=== PATIENT | female | born 1940 | race Caucasian/White ===

== ENCOUNTER 2019-04-22 13:17 | Inpatient (IN) ==
[2019-04-22 17:32] LABS: BASOPHILS # (AUTO) 0.1 X10^3/uL (0.0-0.1); BASOPHILS % (AUTO) 0.7 % (0.2-1.0); EOSINOPHILS # (AUTO) 0.1 x10^3/uL (0.0-0.2); EOSINOPHILS % (AUTO) 0.7 % (0.9-2.9); HEMATOCRIT 39.8 % (36.0-47.0); HEMOGLOBIN 13.3 g/dL (12.0-16.0); LYMPHOCYTES # (AUTO) 3.4 X10^3/uL (1.3-2.9); LYMPHOCYTES % (AUTO) 44.6 % (21.0-51.0); MEAN CORPUSCULAR HEMOGLOBIN 30.6 pg (27.0-34.0); MEAN CORPUSCULAR HGB CONC 33.5 g/dL (33.0-35.0); MEAN CORPUSCULAR VOLUME 91.4 fL (80.0-100.0); MEAN PLATELET VOLUME 8.1 fL (7.4-11.0); MONOCYTES # (AUTO) 0.5 x10^3/uL (0.3-0.8); MONOCYTES % (AUTO) 6.1 % (0.0-13.0); NEUTROPHILS # (AUTO) 3.7 x10^3/uL (2.2-4.8); NEUTROPHILS % (AUTO) 47.9 % (42.0-75.0); PLATELET COUNT 208 X10^3/uL (150.0-450.0); RED BLOOD COUNT 4.35 X10^6/uL (3.5-5.4); WHITE BLOOD COUNT 7.7 X10^3/uL (3.6-10.0)
[2019-04-22 17:33] VITALS: BMI 21.9
[2019-04-22 18:10] LABS: ALANINE AMINOTRANSFERASE 31 Units/L (12-78); ALKALINE PHOSPHATASE 67 Units/L (46-116); ASPARTATE AMINO TRANSFERASE 37 Units/L (15-37); BLOOD UREA NITROGEN 13 mg/dL (7-18); CALCIUM 9.2 mg/dL (8.5-10.1); CARBON DIOXIDE 29.5 mmol/L (21-32); CHLORIDE 102 mmol/L (98-107); CKMB % 0.6 % (<4); CREATINE KINASE 871 Units/L (26-192); CREATININE 0.91 mg/dL (0.55-1.02); SODIUM 140 mmol/L (136-145); TROPONIN I < 0.02 ng/mL (0-1.5); eGFR NON BLACK RACES > 60 (>60)
[2019-04-22 18:11] LABS: CREATINE KINASE MB 5.6 ng/mL (0-4.0)
--- NOTE | 2019-04-22 18:13 | RAD ---
CHEST, 1 VIEWHISTORY: LEFT SIDE CHEST PAIN, SOBStudy: AP view of the chest.Comparison:NoneFindings:The cardiomediastinal silhouette is normal. No focal consolidations, pleural effusions or pneumothorax. Osseous structures demonstrate no acute abnormality. Bilateral hyperexpansion and interstitial prominence.IMPRESSION:1. No acute cardiopulmonary process.2. Findings of COPD.Electronically signed by: BRYN COOPER (Apr 22, 2019 18:12:01)
--- NOTE | 2019-04-22 18:16 | CT ---
BRAIN W/O CONCLINICAL INDICATION: SYNCOPE, DIZZINESSTECHNIQUE: Images were obtained through the head per standard CT protocol. Multiplanar reformatted images were generated from the CT dataset. Dose reduction techniques including Automated Exposure Control (AEC) and adjustment of mA and kV were utlized.COMPARISON:None.FINDINGS:Diffuse patchy and confluent periventricular and subcortical hypoattenuation with associated volume loss . There is no evidence of acute infarction, intracranial hemorrhage, mass or mass effect, or abnormal extra-axial collection . The density of the larger dural venous sinuses is normal . Age-related, ex-vacuo dilatation of the ventricles and sulci . The skull base and calvarium are normal .The included paranasal sinuses and mastoid air cells are predominantly clear .IMPRESSION:1. No acute intracranial abnormality. 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
[2019-04-22] MEDS ORDERED: NS 250 ML IV 250 ML IV ONE (19:35)
[2019-04-22] MEDS: ROCEPHIN VIAL 1 GRAM 1 G in NS 100 ML IV + SPIKE MINIBAG* 100 ML IV SCH (19:39)
[2019-04-22 22:18] LABS: CREATINE KINASE 686 Units/L (26-192); TROPONIN I < 0.02 ng/mL (0-1.5)
[2019-04-22 22:38] LABS: CKMB % 0.5 % (<4); CREATINE KINASE MB 3.6 ng/mL (0-4.0)
[2019-04-23 01:22] LABS: CKMB % 0.6 % (<4); CREATINE KINASE 635 Units/L (26-192); CREATINE KINASE MB 3.5 ng/mL (0-4.0); TROPONIN I < 0.02 ng/mL (0-1.5)
[2019-04-23 05:56] LABS: BASOPHILS % (AUTO) 0.6 % (0.2-1.0); EOSINOPHILS # (AUTO) 0.1 x10^3/uL (0.0-0.2); EOSINOPHILS % (AUTO) 0.9 % (0.9-2.9); HEMOGLOBIN 12.4 g/dL (12.0-16.0); LYMPHOCYTES # (AUTO) 3.2 X10^3/uL (1.3-2.9); LYMPHOCYTES % (AUTO) 45.3 % (21.0-51.0); MEAN CORPUSCULAR HEMOGLOBIN 31.1 pg (27.0-34.0); MEAN CORPUSCULAR HGB CONC 33.4 g/dL (33.0-35.0); MEAN CORPUSCULAR VOLUME 93.2 fL (80.0-100.0); MEAN PLATELET VOLUME 8.4 fL (7.4-11.0); MONOCYTES # (AUTO) 0.5 x10^3/uL (0.3-0.8); MONOCYTES % (AUTO) 6.8 % (0.0-13.0); NEUTROPHILS # (AUTO) 3.3 x10^3/uL (2.2-4.8); NEUTROPHILS % (AUTO) 46.4 % (42.0-75.0); PLATELET COUNT 188 X10^3/uL (150.0-450.0); RED BLOOD COUNT 3.97 X10^6/uL (3.5-5.4); WHITE BLOOD COUNT 7.1 X10^3/uL (3.6-10.0)
[2019-04-23 06:17] LABS: ALANINE AMINOTRANSFERASE 27 Units/L (12-78); ALBUMIN 3.4 g/dL (3.4-5.0); ALKALINE PHOSPHATASE 60 Units/L (46-116); ASPARTATE AMINO TRANSFERASE 30 Units/L (15-37); BLOOD UREA NITROGEN 12 mg/dL (7-18); CALCIUM 8.6 mg/dL (8.5-10.1); CARBON DIOXIDE 32.2 mmol/L (21-32); CHLORIDE 105 mmol/L (98-107); CREATININE 0.89 mg/dL (0.55-1.02); SODIUM 143 mmol/L (136-145); TOTAL PROTEIN 7.1 g/dL (6.4-8.2); eGFR NON BLACK RACES > 60 (>60)
--- NOTE | 2019-04-23 07:45 | VAS ---
HISTORYchest pain, sob, dizziness, near syncopeSTUDYCAROTIDCOMPARISONNoneTECHNIQUEMultiple snow scale and color flow Doppler images of the ri ght and left carotid arterial system were obtained. The vertebral arterial system was evaluated as w ell.FINDINGSOn review the images of the right left carotid system no significant plaquing or stenoses are observed. Waveforms are normal. Peak systolic velocities are in the normal range maximal 81 cm/s econd in the distal right ICA. Antegrade flow is seen in the right vertebral artery.On the left intim al thickening is seen in the common carotid artery but no significant plaquing or stenoses are observ ed. Waveforms are normal. Peak systolic velocities are in the normal range maximal 142 cm/second in t he distal left ICA. Antegrade flow is seen in the left vertebral artery. Normal color flow Doppler is seen throughout the right and left carotid arterial system. No hemodynamically significant stenosis is seen based on velocity criteria. The right and left vertebral arteries demonstrate antegrade flow .IMPRESSIONNo hemodynamically significant stenosis are seen at by real-time scanning waveforms peak s ystolic velocities or systolic velocity ratios.Antegrade flow is seen in both vertebral arteries.Elec tronically signed by: ALIX FLYNN (Apr 23, 2019 07:43:46)
[2019-04-23] MEDS: ROCEPHIN VIAL 1 GRAM 1 G in NS 100 ML IV + SPIKE MINIBAG* 100 ML IV SCH (08:41)
--- NOTE | 2019-04-23 09:08 | DR.UPDATE ---
H&P Update History and Physical Update: History and Physical reviewed and patient examined. Changes noted: Yes with the following: PRESENTED TO THE OFFICE WITH COMPLAINTS OF SHORNESS OF BREATH, CHEST DISCOMFORT, SINUS CONGESTION, FATIGUE, AND MALAISE. SHE ALSO REPORTED SINUS PRESSURE WITH BLOODY DISCHARGE, DIZZINESS, AND NEAR SYNCOPE. SHE WAS ADMITTED TO THE HOSPITAL FOR FURTHER EVALUATION OF CHEST PAIN, SOB, AND SINUSITIS. ON ADMISSION, WE WILL OBTAIN LABS, SERIAL CARDIAC ENZYMES AND EKGS, BRAIN CT, CHEST XRAY, AND A CAROTID ARTERY US. WE WILL START ROCPEHIN 1G IV DAILY, SUPPLEMENTAL OXYGEN, AND WILL RESUME HER HOME MEDICATIONS. OTHERWISE, WE WILL FOLLOW UP WITH AM LABS AND CONTINUE TO MONITOR. Prescription drug monitoring program results: PDMP was not reviewed H&P Reviewed: Yes Patient was examined?: Yes
[2019-04-23] MEDS ORDERED: ANTIVERT TAB 25 MG PO PRN (10:19)
[2019-04-23] MEDS: LOPRESSOR TAB 25 MG PO SCH ×2 (11:03→20:25)
[2019-04-23] MEDS: ZESTRIL TAB 10 MG PO SCH ×2 (11:04→20:25)
[2019-04-23] MEDS: LANOXIN PO SCH (11:04)
[2019-04-23] MEDS: SYNTHROID 75 mcg TAB PO SCH (11:04)
[2019-04-23] MEDS: PriLOSEC PO SCH (11:05)
--- NOTE | 2019-04-23 20:58 | PCM.PROG ---
Progress Note - Progress Note for Day of Date of Exam: 04/23/19 - Subjective Subjective: WAS ADMITTED FOR CHEST PAIN, SHORTNESS OF BREATH, AND SINUSITIS. TODAY, SHE IS ALERT AND ORIENTED, LYING IN BED ON MORNING ROUNDS. SHE DENIES CHEST PAIN TODAY, BUT CONTINUES WITH COMPLAINTS OF SHORTNESS OF BREATH AND SINUS CONGESTION. SHE ALSO CONTINUES WITH FATIGUE. ON EXAMINATION, HEART IS REGULAR IN RATE AND RHYTHM. BILATERAL LUNGS ARE NOTED WITH DIMINISHED LUNG SOUNDS THROUGHOUT. ABDOMEN IS ROUND, SOFT, AND NON-TENDER WITH NORMAL BOWEL SOUNDS NOTED IN ALL QUADRANTS. HER VITALS THIS MORNING ARE: 98.0-58-18-100%-167/72. LABS WERE OBTAINED. ABNORMAL LAB VALUES INCLUDE THE FO LLOWING: INR 1.83, CARBON DIOXIDE 32.2, GLUCOSE 100. A CHEST XRAY WAS OBTAINED ON ADMISSION AND REVEALED: No acute cardiopulmonary process. Findings of COPD. A BRAIN CT WAS OBTAINED AND REVEALED: 1. No acute intracranial abnormality. 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 If there is definite, focal, acute neurologic deficit, MRI with diffusion-weighted imaging would be more sensitive for detection of acute stroke. AN EKG WAS OBTAINED AND REVEALED: SINUS RHYTHM WITH HR 65. A CAROTID ARTERY ULTRASOUND WAS OBTAINED AND REVEALED: No hemodynamically significant stenosis are seen at by real-time scanning waveforms peak systolic velocities or systolic velocity ratios. Antegrade flow is seen in both vertebral arteries. SHE IS CURRENTLY RECEIVING ROCEPHIN 1G IV DAILY. WE WILL RESUME HER HOME MEDICATIONS TODAY. OTHERWISE, WE WILL FOLLOW UP WITH AM LABS AND CONTINUE TO MONITOR. - Past Medical Family Social History Past Med/Fam/Surg Hx: No changes since H&P Allergies: Allergies levofloxacin [From Levaquin] Allergy (Verified 04/22/19 16:32) Sulfa (Sulfonamide Antibiotics) Allergy (Verified 04/22/19 16:32) - Review of Systems ROS: No change since H&P - Vital Signs and I&O's Vital Signs: Temperature 98.4 F Pulse Rate [Left Brachial] 60 Pulse Rate 64 Respiratory Rate 18 Blood Pressure [Left Arm] 136/63 O2 Sat by Pulse Oximetry 100 Intake and Output: Intake & Output 04/21/19 04/22/19 04/23/19 04/24/19 11:59 11:59 11:59 11:59 Intake Total 470 / 470 720 / 720 Balance 470 / 470 720 / 720 - Physical Exam Oriented: Normal Eyes: Normal Ear: Normal Nose: Normal Throat: Normal Respiratory: Generalized, Diminished Cardiovascular: Normal : Normal Auscultation: Bowel Sounds: Normal Palpation: Normal Tenderness: Normal Skin: Normal Musculoskeletal: Normal Psychiatric: Normal Mood Description: Calm Affect: Normal Speech Pattern: Clear, Appropriate - Laboratory and Diagnostics Result Diagrams: 04/23/19 05:29 04/23/19 05:29 Labs: Laboratory WBC 7.1 X10^3/uL (3.6-10.0) 04/23/19 05:29 RBC 3.97 X10^6/uL (3.5-5.4) 04/23/19 05:29 Hgb 12.4 g/dL (12.0-16.0) 04/23/19 05:29 Hct 37.0 % (36.0-47.0) 04/23/19 05:29 MCV 93.2 fL (80.0-100.0) 04/23/19 05:29 MCH 31.1 pg (27.0-34.0) 04/23/19 05:29 MCHC 33.4 g/dL (33.0-35.0) 04/23/19 05:29 RDW 15.0 % (11.6-16.5) 04/23/19 05:29 Plt Count 188 X10^3/uL (150.0-450.0) 04/23/19 05:29 MPV 8.4 fL (7.4-11.0) 04/23/19 05:29 Neut % (Auto) 46.4 % (42.0-75.0) 04/23/19 05:29 Lymph % (Auto) 45.3 % (21.0-51.0) 04/23/19 05:29 [place] % (Auto) 6.8 % (0.0-13.0) 04/23/19 05:29 Eos % (Auto) 0.9 % (0.9-2.9) 04/23/19 05:29 Baso % (Auto) 0.6 % (0.2-1.0) 04/23/19 05:29 Neut # (Auto) 3.3 x10^3/uL (2.2-4.8) 04/23/19 05:29 Lymph # (Auto) 3.2 X10^3/uL (1.3-2.9) H 04/23/19 05:29 [place] # (Auto) 0.5 x10^3/uL (0.3-0.8) 04/23/19 05:29 Eos # (Auto) 0.1 x10^3/uL (0.0-0.2) 04/23/19 05:29 Baso # (Auto) 0.0 X10^3/uL (0.0-0.1) 04/23/19 05:29 Absolute Nucleated RBC 0.0 /100WBC 04/23/19 05:29 PT 20.5 SECONDS (11.8-14.3) 04/23/19 05:30 INR Target Range - 04/23/19 05:30 INR 1.83 (0.8-1.3) H 04/23/19 05:30 Sodium 143 mmol/L (136-145) 04/23/19 05:29 Corrected Sodium TNP 04/23/19 05:29 Potassium 4.2 mmol/L (3.5-5.1) 04/23/19 05:29 Chloride 105 mmol/L (98-107) 04/23/19 05:29 Carbon Dioxide 32.2 mmol/L (21-32) H 04/23/19 05:29 BUN 12 mg/dL (7-18) 04/23/19 05:29 Creatinine 0.89 mg/dL (0.55-1.02) 04/23/19 05:29 Est GFR (MDRD) Af Amer > 60 (>60) 04/23/19 05:29 Est GFR (MDRD) Non-Af > 60 (>60) 04/23/19 05:29 Glucose 100 mg/dL (65-99) H 04/23/19 05:29 Calcium 8.6 mg/dL (8.5-10.1) 04/23/19 05:29 Corrected Calcium TNP 04/23/19 05:29 Magnesium 2.0 mg/dL (1.7-2.9) 04/22/19 17:22 Total Bilirubin 0.60 mg/dL (0.2-1.0) 04/23/19 05:29 AST 30 Units/L (15-37) 04/23/19 05:29 ALT 27 Units/L (12-78) 04/23/19 05:29 Alkaline Phosphatase 60 Units/L (46-116) 04/23/19 05:29 Creatine Kinase 635 Units/L (26-192) H 04/23/19 00:35 CK-MB (CK-2) 3.5 ng/mL (0-4.0) 04/23/19 00:35 CK/CKMB % Calc 0.6 % (<4) 04/23/19 00:35 Troponin I < 0.02 ng/mL (0-1.5) 04/23/19 00:35 Total Protein 7.1 g/dL (6.4-8.2) 04/23/19 05:29 Albumin 3.4 g/dL (3.4-5.0) 04/23/19 05:29 Globulin 3.7 g/dL (2.5-4.5) 04/23/19 05:29 Albumin/Globulin Ratio 0.9 Ratio (1.1-2.1) L 04/23/19 05:29 - Plan (1) Chest pain, rule out acute myocardial infarction Status: Acute Plan: MONITOR CARDIAC ENZYMES, SUPPLEMENTAL OXYGEN, CONTINUE TO MONITOR (2) Shortness of breath Status: Acute (3) Sinusitis Status: Acute Qualifiers: Sinusitis location: unspecified location Chronicity: acute Recurrence: not specified as recurrent Qualified Code(s): J01.90 - Acute sinusitis, unspecified Plan: ROCEPHIN 1G IV DAILY, CONTINUE TO MONITOR
[2019-04-23] MEDS ORDERED: COUMADIN TAB 5 MG PO SCH (21:00)
[2019-04-24 05:31] LABS: BASOPHILS # (AUTO) 0.1 X10^3/uL (0.0-0.1); BASOPHILS % (AUTO) 1.2 % (0.2-1.0); EOSINOPHILS # (AUTO) 0.1 x10^3/uL (0.0-0.2); EOSINOPHILS % (AUTO) 1.5 % (0.9-2.9); HEMATOCRIT 37.2 % (36.0-47.0); HEMOGLOBIN 12.6 g/dL (12.0-16.0); LYMPHOCYTES # (AUTO) 2.8 X10^3/uL (1.3-2.9); LYMPHOCYTES % (AUTO) 43.7 % (21.0-51.0); MEAN CORPUSCULAR HEMOGLOBIN 31.4 pg (27.0-34.0); MEAN CORPUSCULAR HGB CONC 33.7 g/dL (33.0-35.0); MEAN CORPUSCULAR VOLUME 93.1 fL (80.0-100.0); MEAN PLATELET VOLUME 9.6 fL (7.4-11.0); MONOCYTES # (AUTO) 0.5 x10^3/uL (0.3-0.8); MONOCYTES % (AUTO) 7.6 % (0.0-13.0); PLATELET COUNT 165 X10^3/uL (150.0-450.0); RED CELL DISTRIBUTION WIDTH 14.8 % (11.6-16.5); WHITE BLOOD COUNT 6.4 X10^3/uL (3.6-10.0)
[2019-04-24 05:44] LABS: ALANINE AMINOTRANSFERASE 27 Units/L (12-78); ALBUMIN 3.3 g/dL (3.4-5.0); ALKALINE PHOSPHATASE 56 Units/L (46-116); ASPARTATE AMINO TRANSFERASE 30 Units/L (15-37); BLOOD UREA NITROGEN 13 mg/dL (7-18); CALCIUM 8.5 mg/dL (8.5-10.1); CHLORIDE 105 mmol/L (98-107); CKMB % 0.5 % (<4); COR CA(FOR HYPOALB) 9.1 mg/dL (8.5-10.1); CREATINE KINASE 337 Units/L (26-192); CREATINE KINASE MB 1.5 ng/mL (0-4.0); CREATININE 0.83 mg/dL (0.55-1.02); SODIUM 142 mmol/L (136-145); TROPONIN I < 0.02 ng/mL (0-1.5); eGFR NON BLACK RACES > 60 (>60)
[2019-04-24] MEDS: LANOXIN PO SCH (09:39)
[2019-04-24] MEDS: PriLOSEC PO SCH (09:39)
[2019-04-24] MEDS: LOPRESSOR TAB 25 MG PO SCH ×2 (09:40→20:31)
[2019-04-24] MEDS: SYNTHROID 75 mcg TAB PO SCH (09:40)
[2019-04-24] MEDS: ROCEPHIN VIAL 1 GRAM 1 G in NS 100 ML IV + SPIKE MINIBAG* 100 ML IV SCH (09:40)
[2019-04-24] MEDS: ZESTRIL TAB 10 MG PO SCH ×2 (09:40→20:33)
[2019-04-24] MEDS ORDERED: COUMADIN TAB 7.5 MG PO SCH (21:00)
[2019-04-24] MEDS ORDERED: TYLENOL 325 MG TAB PO PRN (22:28)
[2019-04-24] MEDS ORDERED: TYLENOL 325 MG TAB PO ONE (23:28)
[2019-04-25 06:52] LABS: BASOPHILS # (AUTO) 0.1 X10^3/uL (0.0-0.1); BASOPHILS % (AUTO) 0.9 % (0.2-1.0); EOSINOPHILS # (AUTO) 0.1 x10^3/uL (0.0-0.2); EOSINOPHILS % (AUTO) 1.4 % (0.9-2.9); HEMATOCRIT 37.9 % (36.0-47.0); HEMOGLOBIN 12.6 g/dL (12.0-16.0); LYMPHOCYTES % (AUTO) 44.1 % (21.0-51.0); MEAN CORPUSCULAR HEMOGLOBIN 30.7 pg (27.0-34.0); MEAN CORPUSCULAR HGB CONC 33.3 g/dL (33.0-35.0); MEAN CORPUSCULAR VOLUME 92.3 fL (80.0-100.0); MEAN PLATELET VOLUME 9.1 fL (7.4-11.0); MONOCYTES # (AUTO) 0.5 x10^3/uL (0.3-0.8); MONOCYTES % (AUTO) 7.9 % (0.0-13.0); NEUTROPHILS # (AUTO) 3.1 x10^3/uL (2.2-4.8); NEUTROPHILS % (AUTO) 45.7 % (42.0-75.0); PLATELET COUNT 197 X10^3/uL (150.0-450.0); RED BLOOD COUNT 4.11 X10^6/uL (3.5-5.4); RED CELL DISTRIBUTION WIDTH 14.9 % (11.6-16.5); WHITE BLOOD COUNT 6.8 X10^3/uL (3.6-10.0)
[2019-04-25 07:08] LABS: ALANINE AMINOTRANSFERASE 26 Units/L (12-78); ALBUMIN 3.4 g/dL (3.4-5.0); ALKALINE PHOSPHATASE 55 Units/L (46-116); ASPARTATE AMINO TRANSFERASE 21 Units/L (15-37); BLOOD UREA NITROGEN 17 mg/dL (7-18); CALCIUM 8.6 mg/dL (8.5-10.1); CARBON DIOXIDE 28.6 mmol/L (21-32); CHLORIDE 106 mmol/L (98-107); CREATININE 0.85 mg/dL (0.55-1.02); SODIUM 142 mmol/L (136-145); TOTAL PROTEIN 7.2 g/dL (6.4-8.2); eGFR NON BLACK RACES > 60 (>60)
[2019-04-25] MEDS: LANOXIN PO SCH (08:30)
[2019-04-25] MEDS: SYNTHROID 75 mcg TAB PO SCH (08:37)
[2019-04-25] MEDS: ROCEPHIN VIAL 1 GRAM 1 G in NS 100 ML IV + SPIKE MINIBAG* 100 ML IV SCH (08:37)
[2019-04-25] MEDS: PriLOSEC PO SCH (08:37)
[2019-04-25] MEDS: ZESTRIL TAB 10 MG PO SCH (08:38)
[2019-04-25] MEDS: LOPRESSOR TAB 25 MG PO SCH (08:38)
[2019-04-25 13:41] VITALS: BP 151/65
--- NOTE | 2019-04-25 22:16 | PCM.PROG ---
Progress Note - Progress Note for Day of Date of Exam: 04/24/19 - Subjective Subjective: WAS ADMITTED FOR CHEST PAIN, SHORTNESS OF BREATH, AND SINUSITIS. TODAY, SHE IS ALERT AND ORIENTED, LYING IN BED ON MORNING ROUNDS. SHE DENIES CHEST PAIN TODAY, BUT CONTINUES WITH COMPLAINTS OF SHORTNESS OF BREATH AND SINUS CONGESTION. SHE ALSO CONTINUES WITH FATIGUE. ON EXAMINATION, HEART IS REGULAR IN RATE AND RHYTHM. BILATERAL LUNGS ARE NOTED WITH DIMINISHED LUNG SOUNDS THROUGHOUT. ABDOMEN IS ROUND, SOFT, AND NON-TENDER WITH NORMAL BOWEL SOUNDS NOTED IN ALL QUADRANTS. HER VITALS THIS MORNING ARE: 98.3-68-18-100%-131/55. LABS WERE OBTAINED. ABNORMAL LAB VALUES INCLUDE THE FO LLOWING: INR 1.45, GLUCOSE 101, CREATINE KINASE 337, ALBUMIN 3.3. AN ECHO WAS OBTAINED AND REVEALED AN EJECTION FRACTION 66%. SHE IS CURRENTLY RECEIVING ROCEPHIN 1G IV DAILY. WE WILL INCREASE HER COUMADIN TO 7.5MG PO HS. OTHERWISE, WE WILL FOLLOW UP WITH AM LABS AND CONTINUE TO MONITOR. - Past Medical Family Social History Past Med/Fam/Surg Hx: No changes since H&P Allergies: Allergies levofloxacin [From Levaquin] Allergy (Verified 04/22/19 16:32) Sulfa (Sulfonamide Antibiotics) Allergy (Verified 04/22/19 16:32) - Review of Systems ROS: No change since H&P - Vital Signs and I&O's Vital Signs: Temperature 98.0 F Pulse Rate [Left Brachial] 63 Pulse Rate 73 Respiratory Rate 20 Blood Pressure [Left Arm] 151/65 O2 Sat by Pulse Oximetry 97 Intake and Output: Intake & Output 04/23/19 04/24/19 04/25/19 04/26/19 11:59 11:59 11:59 11:59 Intake Total 470 / 470 1270 / 1270 1630 / 1630 Balance 470 / 470 1270 / 1270 1630 / 1630 - Physical Exam Oriented: Normal Eyes: Normal Ear: Normal Nose: Normal Throat: Normal Respiratory: Generalized, Diminished Cardiovascular: Normal : Normal Auscultation: Bowel Sounds: Normal Tenderness: Normal Skin: Normal Musculoskeletal: Normal Psychiatric: Normal Mood Description: Calm Affect: Normal Speech Pattern: Clear, Appropriate - Laboratory and Diagnostics Result Diagrams: 04/25/19 05:20 04/25/19 05:20 Labs: Laboratory WBC 6.8 X10^3/uL (3.6-10.0) 04/25/19 05:20 RBC 4.11 X10^6/uL (3.5-5.4) 04/25/19 05:20 Hgb 12.6 g/dL (12.0-16.0) 04/25/19 05:20 Hct 37.9 % (36.0-47.0) 04/25/19 05:20 MCV 92.3 fL (80.0-100.0) 04/25/19 05:20 MCH 30.7 pg (27.0-34.0) 04/25/19 05:20 MCHC 33.3 g/dL (33.0-35.0) 04/25/19 05:20 RDW 14.9 % (11.6-16.5) 04/25/19 05:20 Plt Count 197 X10^3/uL (150.0-450.0) 04/25/19 05:20 MPV 9.1 fL (7.4-11.0) 04/25/19 05:20 Neut % (Auto) 45.7 % (42.0-75.0) 04/25/19 05:20 Lymph % (Auto) 44.1 % (21.0-51.0) 04/25/19 05:20 [place] % (Auto) 7.9 % (0.0-13.0) 04/25/19 05:20 Eos % (Auto) 1.4 % (0.9-2.9) 04/25/19 05:20 Baso % (Auto) 0.9 % (0.2-1.0) 04/25/19 05:20 Neut # (Auto) 3.1 x10^3/uL (2.2-4.8) 04/25/19 05:20 Lymph # (Auto) 3.0 X10^3/uL (1.3-2.9) H 04/25/19 05:20 [place] # (Auto) 0.5 x10^3/uL (0.3-0.8) 04/25/19 05:20 Eos # (Auto) 0.1 x10^3/uL (0.0-0.2) 04/25/19 05:20 Baso # (Auto) 0.1 X10^3/uL (0.0-0.1) 04/25/19 05:20 Absolute Nucleated RBC 0.0 /100WBC 04/25/19 05:20 PT 17.2 SECONDS (11.8-14.3) 04/25/19 05:20 INR Target Range - 04/25/19 05:20 INR 1.46 (0.8-1.3) H 04/25/19 05:20 Sodium 142 mmol/L (136-145) 04/25/19 05:20 Corrected Sodium TNP 04/25/19 05:20 Potassium 4.0 mmol/L (3.5-5.1) 04/25/19 05:20 Chloride 106 mmol/L (98-107) 04/25/19 05:20 Carbon Dioxide 28.6 mmol/L (21-32) 04/25/19 05:20 BUN 17 mg/dL (7-18) 04/25/19 05:20 Creatinine 0.85 mg/dL (0.55-1.02) 04/25/19 05:20 Est GFR (MDRD) Af Amer > 60 (>60) 04/25/19 05:20 Est GFR (MDRD) Non-Af > 60 (>60) 04/25/19 05:20 Glucose 94 mg/dL (65-99) 04/25/19 05:20 Calcium 8.6 mg/dL (8.5-10.1) 04/25/19 05:20 Corrected Calcium TNP 04/25/19 05:20 Magnesium 2.0 mg/dL (1.7-2.9) 04/22/19 17:22 Total Bilirubin 0.50 mg/dL (0.2-1.0) 04/25/19 05:20 AST 21 Units/L (15-37) 04/25/19 05:20 ALT 26 Units/L (12-78) 04/25/19 05:20 Alkaline Phosphatase 55 Units/L (46-116) 04/25/19 05:20 Creatine Kinase 337 Units/L (26-192) H 04/24/19 04:13 CK-MB (CK-2) 1.5 ng/mL (0-4.0) 04/24/19 04:13 CK/CKMB % Calc 0.5 % (<4) 04/24/19 04:13 Troponin I < 0.02 ng/mL (0-1.5) 04/24/19 04:13 Total Protein 7.2 g/dL (6.4-8.2) 04/25/19 05:20 Albumin 3.4 g/dL (3.4-5.0) 04/25/19 05:20 Globulin 3.8 g/dL (2.5-4.5) 04/25/19 05:20 Albumin/Globulin Ratio 0.9 Ratio (1.1-2.1) L 04/25/19 05:20 - Plan (1) Chest pain, rule out acute myocardial infarction Status: Acute Plan: MONITOR CARDIAC ENZYMES, SUPPLEMENTAL OXYGEN, CONTINUE TO MONITOR (2) Shortness of breath Status: Acute (3) Sinusitis Status: Acute Qualifiers: Sinusitis location: unspecified location Chronicity: acute Recurrence: not specified as recurrent Qualified Code(s): J01.90 - Acute sinusitis, unspecified Plan: ROCEPHIN 1G IV DAILY, CONTINUE TO MONITOR
== END 2019-04-25 14:14 | disposition home or self-care (01) | DRG 313 ==
LOC: MED/SURG
PROVIDERS: ADMIT Internal Medicine; ATTEND Internal Medicine
DX: R55 Syncope and collapse; R42 Dizziness and giddiness; R53.1 Weakness; R07.89 Other chest pain; R06.02 Shortness of breath; J01.80 Other acute sinusitis; R26.89 Other abnormalities of gait and mobility; Z79.01 Long term (current) use of anticoagulants; R94.31 Abnormal electrocardiogram [ECG] [EKG]; I10 Essential (primary) hypertension; I48.91 Unspecified atrial fibrillation; R79.1 Abnormal coagulation profile
CPT/HCPCS: 36415; 70450; 71010; 71045; 80053; 82550; 82553; 83735; 84484; 85025; 85610; 93005; 93306; 93880; 94760; 97116; 97162; 97165; 97535; A4222; G0378; J0696; J3490; J7050

== ENCOUNTER 2023-01-20 13:14 | Inpatient (IN) ==
--- NOTE | 2023-01-20 15:26 | ED.ABDFE ---
HPI Time Seen Time Seen by Provider: 01/20/23 15:25 PCP Primary Care Physician: Hawa Conrad Complaint Doctors Chief Complaint Comments: Patient has been having abdominal pain for 4-5 days and yesterday it became more severe. Patient is having generalized pain and observed hematochezia last night. Patient states that she is unable to eat anything for the past 24 hrs because it increases her pain. Patient felt so weak that she almost had a syncopal episode today.Patient denies:fever,n,v,back pain. Chief Complaint:: Pt c/o 4-5 days of intermittent periumbilical pain described as cramping. Last night the pain became more constant and severe. Pt also started having loose stool last night and noticed dark tarry stool since last night. Denies fever. Pt states that she does have nausea if the pain is severe but denies vomiting. COVID-19 Coronavirus risk:travel/contact w/high risk person: No Has patient experienced Coronavirus symptoms: No Source History Provided: Patient Mode of arrival Mode of Arrival: Wheelchair Timing Onset of Chief Complaint: 01/16/23 PMH PMH Past Medical History: Yes Past Medical History: GERD, Hypertension, Hypothyroidism and Renal Disease Past Medical History Comment: Afib Past Surgical History: Yes Surgical History: Hysterectomy and Thyroidectomy Family History History of Family Medical Conditions: Yes Family Medical History: Hypertension Social History Does patient currently use any type of tobacco product: No Have you used tobacco products in the last 12 months: No Type of Tobacco Use: None Does any household member use tobacco: No Alcohol Use: None Do you use any recreational Drugs:: No Lives With: Alone Lives Where: Home Travel Risk Coronavirus risk:travel/contact w/high risk person: No Has patient experienced Coronavirus symptoms: No Infectious screening In the last 2 months have you had wt loss of >10#?: NO Have you had fever, night sweats or hemotysis?: No Have you traveled outside the country in the last 6 months?: No Isolation: Standard ROS Review of Systems Constitutional: Malaise and Weakness; negative Fever Eyes: No Symptoms Reported ENTM: No Symptoms Reported Respiratoy: No Symptoms Reported Cardiovascular: No Symptoms Reported Gastrointestinal/Abdominal: Abdominal Pain (severe and generalized), Diarrhea, Food Intolerance and Other (hematochezia) Genitourinary: No Symptoms Reported Neurological: No Symptoms Reported Musculoskeletal: No Symptoms Reported Integumentary: No Symptoms Reported Hematologic/Lymphatic: No Symptoms Reported Endocrine: No Symptoms Reported Psychiatric: No Symptoms Reported All Other Systems: Reviewed and Negative PE Vital Signs Vitals: Vital Signs Temperature 98.1 F Pulse Rate 66 Respiratory Rate 20 Respiratory Rate 20 Blood Pressure 191/79 O2 Sat by Pulse Oximetry 97 General Limitations: No Limitations and Language Barrier General Appearance: Alert and In No Apparent Distress Head Head Exam: Normal Inspection Eyes Eye exam: Normal Appearance ENT ENT Exam: Normal Exam Neck Neck Exam: Normal Inspection Chest Chest Inspection: Normal Inspection Respiratory Respiratory Exam: Normal Lung Sounds Bilat Respiratory Exam: Bilateral: Clear to Auscultation Cardiovascular Cardiovascular Exam: Regular Rate and Normal Rhythm Abdominal Exam Abdominal Exam: Tenderness and Hypoactive Bowel Sounds; negative Guarding or Rebound Abdominal Tenderness: LUQ, LLQ and Epigastrium Rectal Rectal Exam: Heme (+) Stool Back Back Exam: Normal Inspection Extremeties Extremities Exam: Normal Inspection Neurologic Neurological Exam: Alert and Oriented X3 Psychiatric Psychiatric Exam: Normal Affect and Normal Mood Skin Skin Exam: Warm, Dry and Intact MDM Differential Diagnosis Differential Diagnosis- Considerations may include:: Bowel Obstruction, Diverticular disease, Inflammatory BD, Ischemic Bowel and Other (comments) (Bowel perforation) COURSE Treatment Treatment: Patient has severe abdl pain and her abd/pelvis CT w/o contrast revealed severe colitis from her distal transverse colon to her rectum. Patient received morphine 2mg iv and zofran 4mg iv for pain and nausea.She will receive NS @ 80ml/hr and Zosyn 3.375mg iv. Patient received labetolol 5mg iv. Discussed case with Dr Pereyra who has admitted patient to his service for further inpatient evaluation. [facility] Labs Reviewed Laboratory Results Reviewed?: Yes 01/20/23 15:38 01/20/23 15:38 Laboratory: WBC 9.4 X10^3/uL (3.6-10.0) 01/20/23 15:38 RBC 4.16 X10^6/uL (3.5-5.4) 01/20/23 15:38 Hgb 12.0 g/dL (12.0-16.0) 01/20/23 15:38 Hct 35.9 % (36.0-47.0) L 01/20/23 15:38 MCV 86.2 fL (80.0-100.0) 01/20/23 15:38 MCH 28.9 pg (27.0-34.0) 01/20/23 15:38 MCHC 33.6 g/dL (33.0-35.0) 01/20/23 15:38 RDW 15.0 % (11.6-16.5) 01/20/23 15:38 Plt Count 168 X10^3/uL (150.0-450.0) 01/20/23 15:38 MPV 8.3 fL (7.4-11.0) 01/20/23 15:38 Neut % (Auto) 63.5 % (42.0-75.0) 01/20/23 15:38 Lymph % (Auto) 29.7 % (21.0-51.0) 01/20/23 15:38 Cecil % (Auto) 5.8 % (0.0-13.0) 01/20/23 15:38 Eos % (Auto) 0.3 % (0.9-2.9) L 01/20/23 15:38 Baso % (Auto) 0.7 % (0.2-1.0) 01/20/23 15:38 Neut # (Auto) 6.0 x10^3/uL (2.2-4.8) H 01/20/23 15:38 Lymph # (Auto) 2.8 X10^3/uL (1.3-2.9) 01/20/23 15:38 Cecil # (Auto) 0.5 x10^3/uL (0.3-0.8) 01/20/23 15:38 Eos # (Auto) 0.0 x10^3/uL (0.0-0.2) 01/20/23 15:38 Baso # (Auto) 0.1 X10^3/uL (0.0-0.1) 01/20/23 15:38 Absolute Nucleated RBC 0.1 /100WBC 01/20/23 15:38 Sodium 138 mmol/L (136-145) 01/20/23 15:38 Corrected Sodium TNP 01/20/23 15:38 Potassium 4.0 mmol/L (3.5-5.1) 01/20/23 15:38 Chloride 103 mmol/L (98-107) 01/20/23 15:38 Carbon Dioxide 28.7 mmol/L (21-32) 01/20/23 15:38 BUN 13 mg/dL (7-18) 01/20/23 15:38 Creatinine 1.07 mg/dL (0.55-1.02) H 01/20/23 15:38 Est GFR (MDRD) Af Amer > 60 (>60) 01/20/23 15:38 Est GFR (MDRD) Non-Af 52 (>60) L 01/20/23 15:38 Glucose 92 mg/dL (65-99) 01/20/23 15:38 Lactic Acid 0.6 mmol/L (0.4-2.0) 01/20/23 15:38 Calcium 8.5 mg/dL (8.5-10.1) 01/20/23 15:38 Corrected Calcium TNP 01/20/23 15:38 Total Bilirubin 0.90 mg/dL (0.2-1.0) 01/20/23 15:38 AST 21 Units/L (15-37) 01/20/23 15:38 ALT 18 Units/L (12-78) 01/20/23 15:38 Alkaline Phosphatase 63 Units/L (46-116) 01/20/23 15:38 C-Reactive Protein 2.80 mg/L (0-3.0) 01/20/23 15:38 Total Protein 7.3 g/dL (6.4-8.2) 01/20/23 15:38 Albumin 3.5 g/dL (3.4-5.0) 01/20/23 15:38 Globulin 3.8 g/dL (2.5-4.5) 01/20/23 15:38 Albumin/Globulin Ratio 0.9 Ratio (1.1-2.1) L 01/20/23 15:38 Amylase 76 Units/L (25-115) 01/20/23 15:38 Lipase 118 Units/L (73-393) 01/20/23 15:38 Specimen Type Clean catch urine 01/20/23 16:06 Urine Color Yellow (YELLOW) 01/20/23 16:06 Urine Appearance Clear (CLEAR) 01/20/23 16:06 Urine pH 5.0 (5.0 - 8.0) 01/20/23 16:06 Ur Specific [place] 1.015 (1.000-1.030) 01/20/23 16:06 Urine Protein 1+ (NEGATIVE) 01/20/23 16:06 Urine Glucose (UA) Negative (NEGATIVE) 01/20/23 16:06 Urine Ketones Negative (NEGATIVE) 01/20/23 16:06 Urine Blood 3+ (NEGATIVE) 01/20/23 16:06 Urine Nitrite Negative (NEGATIVE) 01/20/23 16:06 Urine Bilirubin Negative (NEGATIVE) 01/20/23 16:06 Urine Urobilinogen Normal (NORMAL) 01/20/23 16:06 Ur Leukocyte Esterase 1+ (NEGATIVE) 01/20/23 16:06 Urine RBC 0-2 /HPF (0-3) 01/20/23 16:06 Urine WBC 0-2 /HPF (0-5) 01/20/23 16:06 Ur Squamous Epith Cells Rare /HPF (NEGATIVE) 01/20/23 16:06 Urine Bacteria Negative /HPF (NEGATIVE) 01/20/23 16:06 Ur Culture Indicated? No/not indicated 01/20/23 16:06 Stool Occult Blood Positive (NEGATIVE) A 01/20/23 16:16 Stl Occult Blood (IFOB) Cancelled 01/20/23 16:16 XRAY XRAY Interpreted by: Radiologist X-ray Results: EXAM: CT ABDOMEN AND PELVIS WITHOUT INTRAVENOUS CONTRAST HISTORY: Abdominal pain. History of gallbladder surgery. TECHNIQUE: Spiral axial CT images are obtained through the abdomen and pelvis without the administration of intravenous contrast. Additional coronal and sagittal reformatted images are reconstructed. DOSIMETRY: Total DLP 179.28 mGycm; CTDI 3.38 mGy COMPARISON: CT abdomen pelvis dated September 10, 2022. FINDINGS: GASTROINTESTINAL TRACT: There is no evidence for bowel herniation, bowel obstruction, appendicitis or diverticulitis. There is interval appearance of severe (up to 1.7 cm) circumferential thickening of the left colon, from the distal transverse colon to the rectum, with mild pericolonic stranding, in keepi ng with acute colitis; DDx includes (but is not limited to) ulcerative colitis and ischemic colitis in the appropriate clinical setting. No evidence for pneumatosis intestinalis, portal venous air or free intraperitoneal air. GENITOURINARY SYSTEM: There is an approximately 2.7 mm nonobstructing left middle pole renal calculus. The kidneys are otherwise unremarkable. There is no ureteral calculus or stigmata of obstructive uropathy. The urinary bladder is grossly unremarkable for a non-dedicated exam. CT ABDOMEN: Status post cholecystectomy. Aortoiliac atherosclerotic disease, without aneurysm formation. The liver, spleen, pancreas, adrenal glands, and inferior vena cava are within normal limits for a noncontrast CT scan. There is no intra-abdominal or retroperitoneal lymphadenopathy, free fluid, or free air seen. No abdominal herniation is noted. CT PELVIS: No pelvic sidewall or inguinal lymphadenopathy is seen. No inguinal herniation is noted. No free fluid or free air is seen. Status post hysterectomy. BONES AND JOINTS: The visualized bony structures are within normal limits. LUNG BASES: The lung bases are clear. There is a small pericardial effusion, measuring up to 11 mm thick posteriorly (previously 9.6 mm). IMPRESSION: 1. Interval appearance of severe (up to 1.7 cm) circumferential thickening of the left colon, from the distal transverse colon to the rectum, with mild pericolonic stranding, in keeping with acute colitis; DDx includes (but is not limited to) ulcerative colitis and ischemic colitis in the appropriate clinical setting. No evidence for pneumatosis intestinalis, portal venous air or free intraperitoneal air. 2. No evidence for acute appendicitis, bowel herniation/obstruction or diverticulitis seen. 3. Approximately 2.7 mm nonobstructing left middle pole renal calculus 4. No evidence for ureteral stones or obstructive uropathy. 5. No free fluid, free air, mass lesions, or lymphadenopathy seen. 6. Small pericardial effusion, measuring up to 11 mm thick posteriorly (previously 9.6 mm). THIS IS AN ELECTRONICALLY VERIFIED FINAL REPORT 01/20/2023 5:05 PM - Electronically signed by Brendan Rivas Opioid Opioid Risk Tool Age (Vadim box if 16-45): No History of Preadolescent Sexual Abuse: No Total: 0 Total Score Risk Category: Low Risk Copyright: José Luis GARZA predicting aberrant behaviors Discharge Plan Diagnosis Discharge Problem: Acute colitis Discharge Plan Patient Disposition: 09 ADMITTED INPATIENT Condition: Stable Prescriptions: No Action meclizine 25 mg tablet 25 mg PO BID PRN omeprazole 40 mg capsule,delayed release(DR/EC) 40 mg PO BID levothyroxine 75 mcg tablet 75 mcg PO QDAY alprazolam 0.5 mg tablet 0.5 mg PO HS warfarin 5 mg tablet 5 mg PO QDAY digoxin 125 mcg (0.125 mg) tablet 125 mcg PO QDAY rosuvastatin 5 mg tablet 5 mg PO QPM metoprolol tartrate 25 mg tablet 25 mg PO BID Health Concerns: Post Hospitalization: new medications and changes needed to prevent readmission or further decline. Pt educated and given instructions on all concerns. Plan of Treatment: Continue with present treatment and follow up plan. Pt is to keep follow up appointment as instructed and take medications as ordered. Orders to Discharge Patient Discharge Orders: Transfer (Routine); Ordered 01/20/23 Ordered By: Norma Kramer Follow ups/Referrals Follow ups/Referrals: Aroldo Pereyra [Primary Care Provider] - 3 days Instructions Stand Alone Forms: Post Hospital Follow Up Care
[2023-01-20 15:45] LABS: BASOPHILS # (AUTO) 0.1 X10^3/uL (0.0-0.1); BASOPHILS % (AUTO) 0.7 % (0.2-1.0); EOSINOPHILS % (AUTO) 0.3 % (0.9-2.9); HEMATOCRIT 35.9 % (36.0-47.0); LYMPHOCYTES # (AUTO) 2.8 X10^3/uL (1.3-2.9); LYMPHOCYTES % (AUTO) 29.7 % (21.0-51.0); MEAN CORPUSCULAR HEMOGLOBIN 28.9 pg (27.0-34.0); MEAN CORPUSCULAR HGB CONC 33.6 g/dL (33.0-35.0); MEAN CORPUSCULAR VOLUME 86.2 fL (80.0-100.0); MEAN PLATELET VOLUME 8.3 fL (7.4-11.0); MONOCYTES # (AUTO) 0.5 x10^3/uL (0.3-0.8); MONOCYTES % (AUTO) 5.8 % (0.0-13.0); NEUTROPHILS % (AUTO) 63.5 % (42.0-75.0); PLATELET COUNT 168 X10^3/uL (150.0-450.0); RED BLOOD COUNT 4.16 X10^6/uL (3.5-5.4); WHITE BLOOD COUNT 9.4 X10^3/uL (3.6-10.0)
[2023-01-20 16:08] LABS: ALANINE AMINOTRANSFERASE 18 Units/L (12-78); ALBUMIN 3.5 g/dL (3.4-5.0); ALKALINE PHOSPHATASE 63 Units/L (46-116); AMYLASE 76 Units/L (25-115); ASPARTATE AMINO TRANSFERASE 21 Units/L (15-37); BLOOD UREA NITROGEN 13 mg/dL (7-18); CALCIUM 8.5 mg/dL (8.5-10.1); CARBON DIOXIDE 28.7 mmol/L (21-32); CHLORIDE 103 mmol/L (98-107); CREATININE 1.07 mg/dL (0.55-1.02); GLUCOSE 92 mg/dL (65-99); LIPASE 118 Units/L (73-393); SODIUM 138 mmol/L (136-145); TOTAL PROTEIN 7.3 g/dL (6.4-8.2); eGFR NON BLACK RACES 52 (>60)
[2023-01-20 16:37] LABS: BILIRUBIN,URINE NEGATIVE (NEGATIVE); BLOOD/HEMOGLOBIN,URINE 3+ (NEGATIVE); GLUCOSE, URINE NEGATIVE (NEGATIVE); KETONES,URINE NEGATIVE (NEGATIVE); LEUKOCYTE ESTERASE ,URINE 1+ (NEGATIVE); NITRITES,URINE NEGATIVE (NEGATIVE); PROTEIN,URINE 1+ (NEGATIVE); UROBILINOGEN,URINE NORMAL (NORMAL)
[2023-01-20 16:46] LABS: APPEARANCE,URINE CLEAR (CLEAR); COLOR,URINE YELLOW (YELLOW)
[2023-01-20 16:47] LABS: BACTERIA,URINE NEGATIVE /HPF (NEGATIVE); RBC,URINE 0-2 /HPF (0-3); SQUAMOUS EPITHELIAL CELL,UR RARE /HPF (NEGATIVE)
--- NOTE | 2023-01-20 17:09 | CT ---
EXAM: CT ABDOMEN AND PELVIS WITHOUT INTRAVENOUS CONTRASTHISTORY: Abdominal pain. History of gallbladder surgery.TECHNIQUE: Spiral axial CT images are obtained through the abdomen and pelvis without the administration of intravenous contrast. Additional coronal and sagittal reformatted images are reconstructed.DOSIMETRY: Total DLP 179.28 mGycm; CTDI 3.38 mGyCOMPARISON: CT abdomen pelvis dated September 10, 2022.FINDINGS:GASTROINTESTINAL TRACT: There is no evidence for bowel herniation, bowel obstruction, appendicitis or diverticulitis. There is interval appearance of severe (up to 1.7 cm) circumferential thickening of the left colon, from the distal transverse colon to the rectum, with mild pericolonic stranding, in keeping with acute colitis; DDx includes (but is not limited to) ulcerative colitis and ischemic colitis in the appropriate clinical setting. No evidence for pneumatosis intestinalis, portal venous air or free intraperitoneal air.GENITOURINARY SYSTEM: There is an approximately 2.7 mm nonobstructing left middle pole renal calculus. The kidneys are otherwise unremarkable. There is no ureteral calculus or stigmata of obstructive uropathy. The urinary bladder is grossly unremarkable for a non-dedicated exam.CT ABDOMEN: Status post cholecystectomy. Aortoiliac atherosclerotic disease, without aneurysm formation. The liver, spleen, pancreas, adrenal glands, and inferior vena cava are within normal limits for a noncontrast CT scan. There is no intra-abdominal or retroperitoneal lymphadenopathy, free fluid, or free air seen. No abdominal herniation is noted.CT PELVIS: No pelvic sidewall or inguinal lymphadenopathy is seen. No inguinal herniation is noted. No free fluid or free air is seen. Status post hysterectomy.BONES AND JOINTS: The visualized bony structures are within normal limits.LUNG BASES: The lung bases are clear. There is a small pericardial effusion, measuring up to 11 mm thick posteriorly (previously 9.6 mm).IMPRESSION:1. Interval appearance of severe (up to 1.7 cm) circumferential thickening of the left colon, from the distal transverse colon to the rectum, with mild pericolonic stranding, in keeping with acute colitis; DDx includes (but is not limited to) ulcerative colitis and ischemic colitis in the appropriate clinical setting. No evidence for pneumatosis intestinalis, portal venous air or free intraperitoneal air.2. No evidence for acute appendicitis, bowel herniation/obstruction or diverticulitis seen.3. Approximately 2.7 mm nonobstructing left middle pole renal calculus4. No evidence for ureteral stones or obstructive uropathy.5. No free fluid, free air, mass lesions, or lymphadenopathy seen.6. Small pericardial effusion, measuring up to 11 mm thick posteriorly (previously 9.6 mm).THIS IS AN ELECTRONICALLY VERIFIED FINAL [id number]/20/2023 5:05 PM - Electronically signed by Brendan Rivas
[2023-01-20] MEDS ORDERED: MORPHINE SULFATE INJ 2 MG INJ IVP ONE (18:52)
[2023-01-20] MEDS ORDERED: ZOFRAN INJ 4 MG VIAL IVP ONE (18:52)
[2023-01-20] MEDS ORDERED: MORPHINE SULFATE INJ 2 MG INJ ONE (19:16)
[2023-01-20] MEDS ORDERED: NS 100 ML IV 100 ML ONE (19:16)
[2023-01-20] MEDS ORDERED: ZOSYN VIAL 3.375 GRAMS IV ONE (19:16)
[2023-01-20] MEDS ORDERED: ZOFRAN INJ 4 MG VIAL ONE (19:16)
[2023-01-20] MEDS ORDERED: NS 1,000 ML IV 1,000 ML ONE (19:16)
[2023-01-20] MEDS: NS 1,000 ML IV 1,000 ML IV SCH (19:31)
[2023-01-20] MEDS: ZOSYN VIAL 3.375 GRAMS 3.375 G in NS 100 ML IV 100 ML IV SCH ×2 (19:32→21:43)
[2023-01-20] MEDS ORDERED: LABETALOL HCL IVP ONE (19:52)
[2023-01-20] MEDS ORDERED: NORMODYNE INJ 20 MG VIAL ONE (19:54)
[2023-01-20] MEDS ORDERED: NORMODYNE INJ 20 MG VIAL IVP ONE (20:02)
[2023-01-20 20:31] LABS: INR 1.53 (0.8-1.3)
[2023-01-20] MEDS ORDERED: PATIENT'S HOME MEDICATION (Alprazolam 0.5 mg tablet) PO SCH (21:15)
[2023-01-20] MEDS: LOPRESSOR TAB 25 MG PO SCH (22:06)
[2023-01-20] MEDS: PriLOSEC PO SCH (22:07)
[2023-01-20] MEDS: CRESTOR TAB 10 MG PO SCH (22:08)
[2023-01-20 22:53] VITALS: BMI 20.7
[2023-01-20] MEDS ORDERED: XANAX ONE (23:15)
[2023-01-20] MEDS: XANAX PO SCH (23:17)
[2023-01-21] MEDS: ZOSYN VIAL 3.375 GRAMS 3.375 G in NS 100 ML IV 100 ML IV SCH ×3 (05:10→21:18)
[2023-01-21] MEDS: NS 1,000 ML IV 1,000 ML IV SCH ×3 (05:11→21:03)
[2023-01-21 05:55] LABS: BASOPHILS # (AUTO) 0.1 X10^3/uL (0.0-0.1); EOSINOPHILS % (AUTO) 0.5 % (0.9-2.9); HEMATOCRIT 34.1 % (36.0-47.0); HEMOGLOBIN 11.5 g/dL (12.0-16.0); LYMPHOCYTES # (AUTO) 3.3 X10^3/uL (1.3-2.9); LYMPHOCYTES % (AUTO) 39.9 % (21.0-51.0); MEAN CORPUSCULAR HEMOGLOBIN 29.2 pg (27.0-34.0); MEAN CORPUSCULAR HGB CONC 33.7 g/dL (33.0-35.0); MEAN CORPUSCULAR VOLUME 86.4 fL (80.0-100.0); MEAN PLATELET VOLUME 9.2 fL (7.4-11.0); MONOCYTES # (AUTO) 0.5 x10^3/uL (0.3-0.8); MONOCYTES % (AUTO) 5.9 % (0.0-13.0); NEUTROPHILS # (AUTO) 4.4 x10^3/uL (2.2-4.8); NEUTROPHILS % (AUTO) 52.7 % (42.0-75.0); PLATELET COUNT 154 X10^3/uL (150.0-450.0); RED BLOOD COUNT 3.94 X10^6/uL (3.5-5.4); RED CELL DISTRIBUTION WIDTH 15.3 % (11.6-16.5); WHITE BLOOD COUNT 8.4 X10^3/uL (3.6-10.0)
[2023-01-21 06:05] LABS: ALANINE AMINOTRANSFERASE 18 Units/L (12-78); ALKALINE PHOSPHATASE 55 Units/L (46-116); ASPARTATE AMINO TRANSFERASE 21 Units/L (15-37); BLOOD UREA NITROGEN 9 mg/dL (7-18); CALCIUM 8.1 mg/dL (8.5-10.1); CARBON DIOXIDE 27.5 mmol/L (21-32); CHLORIDE 107 mmol/L (98-107); COR CA(FOR HYPOALB) 8.9 mg/dL (8.5-10.1); CREATININE 0.88 mg/dL (0.55-1.02); GLUCOSE 85 mg/dL (65-99); POTASSIUM 3.7 mmol/L (3.5-5.1); SODIUM 141 mmol/L (136-145); TOTAL PROTEIN 6.4 g/dL (6.4-8.2); eGFR NON BLACK RACES > 60 (>60)
[2023-01-21] MEDS ORDERED: CONSULT PHARMACY - POTASSIUM & MAGNESIUM XX SCH (07:00)
[2023-01-21] MEDS ORDERED: K-DUR TAB 20 MEQ PO SCH (08:00)
[2023-01-21] MEDS: PEPCID 20 MG VIAL 20 MG in NS 50 ML IV 50 ML IV SCH ×2 (09:21→21:03)
[2023-01-21] MEDS: PROTONIX INJ 40 MG VIAL IVP SCH ×2 (09:22→21:02)
[2023-01-21] MEDS: PriLOSEC PO SCH ×2 (09:58→21:03)
[2023-01-21] MEDS: SYNTHROID 75 mcg TAB PO SCH (09:59)
[2023-01-21] MEDS: LOPRESSOR TAB 25 MG PO SCH ×2 (09:59→21:02)
[2023-01-21] MEDS: MAG-OX TAB PO SCH ×2 (10:00→10:58)
[2023-01-21] MEDS: LANOXIN or DIGITEK PO SCH (10:57)
[2023-01-21] MEDS ORDERED: CATAPRES TAB 0.1 MG PO ONE (11:22)
[2023-01-21] MEDS ORDERED: APRESOLINE INJ 20 MG VIAL IVP ONE (11:22)
--- NOTE | 2023-01-21 12:06 | DR.H&P ---
H&P - History & Physical for Day of: H&P Date: 01/20/23 - Chief Complaint Chief Complaint: ABDOMINAL PAIN, WEAKNESS, BLOOD IN STOOL - History of Present Illness History of Present Illness: IS A 82 YEAR OLD PATIENT OF OURS. SHE HAS A PMH OF GERD, HTN, HYPOTHYROIDISM, RENAL DISEASE, ATRIAL FIBRILLATION, ANXIETY, HYSTERCTOMY, AND THYROIDECTOMY. SHE PRESENTED TO THE ER WITH COMPLAINTS OF DIFFUSE ABDOMINAL PAIN AND PASSING BLOOD IN HER STOOLS. SHE REPORTS THAT HER SYMPTOMS STARTED 4-5 DAYS PRIOR AND HAS PROGRESSIVELY GOTTEN WORSE. SHE HAS ALSO BECOME INCREASINGLY WEAK AND REPORTS HAVING A NEAR SYNCOPAL EPISODE PRIOR TO ARRIVAL. SHE REPORTS THAT SHE INITIALLY HAD BRIGHT RED BLOOD IN STOOLS, WHICH THEN TURNED TO DARK AND TARRY. SHE DESCRIBES ABDOMINAL PAIN CONSTANT AND CRAMPING. PAIN IS WORSE AROUND THE UMBILICAL AREA. SHE RATED THE PAIN A 7/10 ON ARRIVAL. SHE DENIED FEVER, NAUSEA, VOMITING, OR BACK PAIN. ON ARRIVAL TO THE HOSPITAL, HER VITALS WERE: 98.1-66-20-97%-191/79. LABS WERE OBTAINED. WBC 9.4, RBC 4.16, HGB 12.0, HCT 35.9, PLT COUNT 168, INR 1.53, SODIUM 138, POTASSIUM 4.0, CHLORIDE 103, BUN 13, CREATININE 1.07, GLUCOSE 92, CALCIUM 8.5, TOTAL BILI 0.90, AST 21, ALT 18, ALK PHOS 63, CRP 2.80, TOTAL PROTEIN 7.3, ALBUMIN 3.5, AMYLASE 76, LIPASE 118, LACTIC ACID 0.6. URINALYSIS WAS OBTAINED AND REVEALED: WBC 0-2, RBC 0-2, LEUKOCYTES 1+, BACTERIA NEGATIVE, BLOOD 3+. STOOL IS POSITIVE FOR OCCULT BLOOD. AN ABDOMEN/PELVIS CT WITHOUT CONTRAST WAS OBTAINED AND REVEALED: 1. Interval appearance of severe (up to 1.7 cm) circumferential thickening of the left colon, from the distal transverse colon to the rectum, w ith mild pericolonic stranding, in keeping with acute colitis; DDx includes (but is not limited to) ulcerative colitis and ischemic colitis in the appropriate clinical setting. No evidence for pneumatosis intestinalis, portal venous air or free intraperitoneal air. 2. No evidence for acute appendicitis, bowel herniation/obstruction or diverticulitis seen. 3. Approximately 2.7 mm nonobstructing left middle pole renal calculus 4. No evidence for ureteral stones or obstructive uropathy. 5. No free fluid, free air, mass lesions, or lymphadenopathy seen. 6. Small pericardial effusion, measuring up to 11 mm thick posteriorly (previously 9.6 mm). IN THE ER, SHE WAS GIVEN MORPHINE 2MG IV X 1 DOSE, ZOFRAN 4MG IV X 1 DOSE, AND NORMODYNE 5MG IV X 1. BLOOD PRESSURE DECREASED TO 167/72. PATIENT WAS ADMITTED TO THE HOSPITAL INPATIENT STATUS FOR FURTHER EVALUATION AND TREATMENT OF ACUTE COLITIS. SHE WAS STARTED ON NORMAL SALINE AT 80 ML/HR, ZOSYN 3.375G IV TID, PROTONIX 40MG IV BID, PEPCID 20MG IV Q12. HER HOME MEDICATIONS OF XANAX, DIGOXIN, SYNTHROID, LOPRESSOR, PRILOSEC, AND CRESTOR WERE RESUMED. OTHERWISE, WE PLAN TO FOLLOW UP WITH AM LABS AND CONTINUE TO MONITOR. TIME SPENT ON CLINICAL ASSESSMENT, REVIEWING LABS AND IMAGING, DECISION MAKING, AND DOCUMENTATION GREATER THAN 75 MINUTES. - Past Medical History Past Medical History: Hypertension, Renal Disease, Hypothyroidism, GERD - Past Surgical History Surgical History: Hysterectomy, Thyroidectomy, Other - Family History Family Medical History: Hypertension - Social History Does patient currently use any type of tobacco product: No Have you used tobacco products in the last 12 months: No Type of Tobacco Use: None Does any household member use tobacco: No Alcohol Use: None Drug Use: None - Review of Systems Constitutional: Weakness Eyes: No Symptoms Reported ENT: No Symptoms Reported Respiratory: No Symptoms Reported Cardiovascular: No Symptoms Reported Gastrointestinal: See HPI, Abdominal Pain, Melena, Hematochezia Genitourinary: No Symptoms Reported Musculoskeletal: No Symptoms Reported Skin: No Symptoms Reported Neurological: Weakness - Physical Exam Vital Signs: Vital Signs Temperature 98.3 F Temperature 98.3 F Pulse Rate [Right] 54 Pulse Rate [Right] 58 Pulse Rate 58 Respiratory Rate 18 Respiratory Rate 18 Blood Pressure [Right Arm] 191/80 Blood Pressure [Right Arm] 194/74 O2 Sat by Pulse Oximetry 94 O2 Sat by Pulse Oximetry 94 Oriented: Normal Eyes: Normal Ear: Normal Nose: Normal Throat: Normal Respiratory: Clear Throughout Cardiovascular: Normal : Normal Auscultation: Bowel Sounds: Normal Palpation: Normal Tenderness: Diffuse, Periumbilical, Moderate Skin: Normal Musculoskeletal: Normal Psychiatric: Normal Mood Description: Calm Affect: Normal Speech Pattern: Clear - Assessment/Plan (1) Acute colitis Status: Acute Plan: ADMIT, NORMAL SALINE AT 80 ML/HR, ZOSYN 3.375G IV TID, PROTONIX 40MG IV BID, PEPCID 20MG IV Q12H. RESUME HOME MEDS (2) Hypertension Qualifiers: Hypertension type: primary hypertension Qualified Code(s): I10 - Essential (primary) hypertension Status: Chronic Plan: RESUME LOPRESSOR (3) A-fib Qualifiers: Atrial fibrillation type: unspecified Qualified Code(s): I48.91 - Unspecified atrial fibrillation Status: Chronic Plan: RESUME DIGOXIN AND LOPRESSOR (4) Chronic kidney disease (CKD) Qualifiers: Chronic kidney disease stage: unspecified stage Qualified Code(s): N18.9 - Chronic kidney disease, unspecified Status: Chronic Plan: CONTINUE TO MONITOR (5) Hypothyroidism Qualifiers: Hypothyroidism type: acquired Qualified Code(s): E03.9 - Hypothyroidism, unspecified Status: Chronic Plan: RESUME SYNTHROID (6) LILIAN (generalized anxiety disorder) Status: Chronic Plan: RESUME XANAX (7) Hyperlipidemia Qualifiers: Hyperlipidemia type: mixed hyperlipidemia Qualified Code(s): E78.2 - Mixed hyperlipidemia Status: Chronic Plan: RESUME CRESTOR - Allergies Allergies/Adverse Reactions: Allergies Allergy/AdvReac Type Severity Reaction Status Date / Time levofloxacin [From Levaquin] Allergy Verified 01/20/23 13:30 Sulfa (Sulfonamide Allergy Verified 01/20/23 13:30 Antibiotics) - Medications Home Medications: Home Medications Medication Instructions Recorded Confirmed meclizine 25 mg tablet 25 mg PO BID PRN 04/22/19 01/20/23 alprazolam 0.5 mg tablet 0.5 mg PO HS 09/10/22 01/20/23 digoxin 125 mcg (0.125 mg) tablet 125 mcg PO QDAY 09/10/22 01/20/23 levothyroxine 75 mcg tablet 75 mcg PO QDAY 09/10/22 01/20/23 metoprolol tartrate 25 mg tablet 25 mg PO BID 09/10/22 01/20/23 omeprazole 40 mg capsule,delayed 40 mg PO BID 09/10/22 01/20/23 release rosuvastatin 5 mg tablet 5 mg PO QPM 09/10/22 01/20/23 warfarin 5 mg tablet 5 mg PO QDAY 09/10/22 01/20/23
[2023-01-21] MEDS: XANAX PO SCH (20:47)
[2023-01-21] MEDS: CRESTOR TAB 10 MG PO SCH (20:47)
[2023-01-22] MEDS ORDERED: ULTRAM PO PRN (04:33)
[2023-01-22] MEDS: ZOSYN VIAL 3.375 GRAMS 3.375 G in NS 100 ML IV 100 ML IV SCH ×3 (05:05→21:26)
[2023-01-22 06:14] VITALS: RESP 20
[2023-01-22 06:22] LABS: BASOPHILS # (AUTO) 0.1 X10^3/uL (0.0-0.1); BASOPHILS % (AUTO) 1.2 % (0.2-1.0); EOSINOPHILS # (AUTO) 0.1 x10^3/uL (0.0-0.2); EOSINOPHILS % (AUTO) 1.3 % (0.9-2.9); HEMATOCRIT 34.8 % (36.0-47.0); HEMOGLOBIN 11.6 g/dL (12.0-16.0); LYMPHOCYTES # (AUTO) 2.4 X10^3/uL (1.3-2.9); LYMPHOCYTES % (AUTO) 36.7 % (21.0-51.0); MEAN CORPUSCULAR HEMOGLOBIN 28.9 pg (27.0-34.0); MEAN CORPUSCULAR HGB CONC 33.4 g/dL (33.0-35.0); MEAN CORPUSCULAR VOLUME 86.5 fL (80.0-100.0); MEAN PLATELET VOLUME 9.6 fL (7.4-11.0); MONOCYTES # (AUTO) 0.5 x10^3/uL (0.3-0.8); NEUTROPHILS # (AUTO) 3.5 x10^3/uL (2.2-4.8); NEUTROPHILS % (AUTO) 52.8 % (42.0-75.0); PLATELET COUNT 140 X10^3/uL (150.0-450.0); RED BLOOD COUNT 4.02 X10^6/uL (3.5-5.4); WHITE BLOOD COUNT 6.6 X10^3/uL (3.6-10.0)
[2023-01-22 06:40] LABS: ALANINE AMINOTRANSFERASE 12 Units/L (12-78); ALKALINE PHOSPHATASE 51 Units/L (46-116); ASPARTATE AMINO TRANSFERASE 24 Units/L (15-37); BLOOD UREA NITROGEN 7 mg/dL (7-18); CALCIUM 8.4 mg/dL (8.5-10.1); CARBON DIOXIDE 26.3 mmol/L (21-32); CHLORIDE 108 mmol/L (98-107); COR CA(FOR HYPOALB) 9.2 mg/dL (8.5-10.1); CREATININE 0.94 mg/dL (0.55-1.02); GLUCOSE 82 mg/dL (65-99); SODIUM 142 mmol/L (136-145); TOTAL PROTEIN 6.6 g/dL (6.4-8.2); eGFR NON BLACK RACES > 60 (>60)
[2023-01-22] MEDS: LOPRESSOR TAB 25 MG PO SCH ×2 (09:15→20:49)
[2023-01-22] MEDS: PriLOSEC PO SCH ×2 (09:18→20:43)
[2023-01-22] MEDS: SYNTHROID 75 mcg TAB PO SCH (09:19)
[2023-01-22] MEDS: PROTONIX INJ 40 MG VIAL IVP SCH ×2 (09:20→21:25)
[2023-01-22] MEDS: PEPCID 20 MG VIAL 20 MG in NS 50 ML IV 50 ML IV SCH ×2 (09:22→20:45)
--- NOTE | 2023-01-22 09:45 | RAD ---
EXAM:Acute abdominal seriesHISTORY:Acute colitisCOMPARISON:CT abdomen pelvis 01/20/2023FINDINGS:Heart size is normal. Dinah are normal. Lung du are clear. No pleural effusion or pneumothorax is identified. Abdominal gas pattern is nonspecific and nonobstructive. No evidence for megacolon. No pneumoperitoneum is identified. Regional skeleton is intact.IMPRESSION:Unremarkable acute abdominal seriesTHIS IS AN ELECTRONICALLY VERIFIED FINAL [id number]/22/2023 9:42 AM - Electronically signed by Demetri Brown MD
[2023-01-22] MEDS: LANOXIN or DIGITEK PO SCH (10:45)
[2023-01-22] MEDS: NS 1,000 ML IV 1,000 ML IV SCH ×2 (10:52→13:18)
[2023-01-22] MEDS ORDERED: READI-CAT 2 ONE (11:58)
--- NOTE | 2023-01-22 12:15 | PCM.PROG ---
Progress Note - Progress Note for Day of Date of Exam: 01/22/23 - Subjective Subjective: IS CURRENTLY INPATIENT STATUS FOR TREATMENT OF ACUTE COLITIS, ABDOMINAL PAIN, AND GENERLIZED WEAKNESS. SHE HAS A PMH OF GERD, HTN, HYPOTHYROIDISM, RENAL DISEASE, ATRIAL FIBRILLATION, ANXIETY, HYSTERCTOMY, AND THYROIDECTOMY. TODAY, SHE IS ALERT AND ORIENTED, LYING IN BED ON MORNING ROUNDS. SHE CONTINUES TO COMPLAIN OF DIFFUSE ABDOMINAL PAIN AND DISTENTION TODAY. SHE ALSO COMPLAINS OF SEVERAL EPISODES OF DIARRHEA. SHE DENIES SIGNIFICANT IMPROVEMENT IN SYMPTOMS SINCE ADMISSION. ON EXAMINATION, HEART IS REGULAR IN RATE AND RHYTHM. BILATERAL LUNGS ARE CLEAR TO AUSCULTATION. ABDOMEN IS ROUND, SOFT, AND NOTED WITH DIFFUSE TENDERNESS. GOOD RANGE OF MOTION NOTED TO UPPER AND LOWER EXTREMITIES WITH NO EDEMA NOTED. HER VITALS THIS MORNING ARE: 98.3-68-20-99%-190/81. LABS WERE OBTAINED. WBC 6.6, RBC 4.02, HGB 11.6, HCT 34.8, PLT COUNT 140, SODIUM 142, POTASSIUM 4.0, CHLORIDE 108, BUN 7, CREATININE 0.94, GLUCOSE 82, CALCIUM 8.4, MAGNESIUM 2.0, TOTAL BILI 0.90, AST 24, ALT 12, ALK PHOS 51, TOTAL PROTEIN 6.6, ALBUMIN 3.0, DIGOXIN 0.70. AN ABDOMEN XRAY WAS OBTAINED THIS MORNING AND REVEALED: Heart size is normal. Dinah are normal. Lung du are clear. No pleural effusion or pneumothorax is identified. Abdominal gas pattern is nonspecific and nonobstructive. No evidence for megacolon. No pneumoperitoneum is identified. Regional skeleton is intact. SHE IS CURRENTLY RECEIVING NORMAL SALINE AT 80 ML/HR, ZOSYN 3.375G IV TID, PROTONIX 40MG IV BID, PEPCID 20MG IV Q12. HER HOME MEDICATIONS OF XANAX, DIGOXIN, SYNTHROID, LOPRESSOR, PRILOSEC, AND CRESTOR WERE RESUMED. TODAY, WE WILL OBTAIN STOOL STUDIES AND REPEAT AN ABDOMEN/PELVIS CT WITH CONTRAST. WE WILL START LOSARTAN 50MG DAILY. OTHERWISE, WE WILL FOLLOW UP WITH AM LABS AND CONTINUE TO MONITOR. TIME SPENT ON CLINICAL ASSESSMENT, REVIEWING LABS AND IMAGING, DECISION MAKING, AND DOCUMENTATION GREATER THAN 45 MINUTES. - Past Medical Family Social History Past Med/Fam/Surg Hx: No changes since H&P Allergies: Allergies levofloxacin [From Levaquin] Allergy (Verified 01/20/23 13:30) Sulfa (Sulfonamide Antibiotics) Allergy (Verified 01/20/23 13:30) - Review of Systems ROS: No change since H&P - Vital Signs and I&O's Vital Signs: Vital Signs Temperature 98.3 F Pulse Rate [Right] 68 Pulse Rate 68 Respiratory Rate 20 Respiratory Rate 20 Respiratory Rate 21 Blood Pressure [Right Arm] 190/81 O2 Sat by Pulse Oximetry 99 Intake and Output: Intake & Output 01/20/23 01/21/23 01/22/23 01/23/23 11:59 11:59 11:59 11:59 Intake Total 696 / 696 2891 / 2891 Balance 696 / 696 2891 / 2891 - Physical Exam Oriented: Normal Eyes: Normal Ear: Normal Nose: Normal Throat: Normal Respiratory: Normal Cardiovascular: Normal : Normal Auscultation: Bowel Sounds: Normal Palpation: Normal Tenderness: Diffuse, Periumbilical, Moderate Skin: Normal Musculoskeletal: Normal Psychiatric: Normal Mood Description: Calm Affect: Normal Speech Pattern: Clear, Appropriate - Laboratory and Diagnostics Result Diagrams: 01/22/23 05:32 01/22/23 05:32 Labs: Laboratory WBC 6.6 X10^3/uL (3.6-10.0) 01/22/23 05:32 RBC 4.02 X10^6/uL (3.5-5.4) 01/22/23 05:32 Hgb 11.6 g/dL (12.0-16.0) L 01/22/23 05:32 Hct 34.8 % (36.0-47.0) L 01/22/23 05:32 MCV 86.5 fL (80.0-100.0) 01/22/23 05:32 MCH 28.9 pg (27.0-34.0) 01/22/23 05:32 MCHC 33.4 g/dL (33.0-35.0) 01/22/23 05:32 RDW 15.0 % (11.6-16.5) 01/22/23 05:32 Plt Count 140 X10^3/uL (150.0-450.0) L 01/22/23 05:32 MPV 9.6 fL (7.4-11.0) 01/22/23 05:32 Neut % (Auto) 52.8 % (42.0-75.0) 01/22/23 05:32 Lymph % (Auto) 36.7 % (21.0-51.0) 01/22/23 05:32 [place] % (Auto) 8.0 % (0.0-13.0) 01/22/23 05:32 Eos % (Auto) 1.3 % (0.9-2.9) 01/22/23 05:32 Baso % (Auto) 1.2 % (0.2-1.0) H 01/22/23 05:32 Neut # (Auto) 3.5 x10^3/uL (2.2-4.8) 01/22/23 05:32 Lymph # (Auto) 2.4 X10^3/uL (1.3-2.9) 01/22/23 05:32 [place] # (Auto) 0.5 x10^3/uL (0.3-0.8) 01/22/23 05:32 Eos # (Auto) 0.1 x10^3/uL (0.0-0.2) 01/22/23 05:32 Baso # (Auto) 0.1 X10^3/uL (0.0-0.1) 01/22/23 05:32 Absolute Nucleated RBC 0.1 /100WBC 01/22/23 05:32 PT 18.1 SECONDS (11.8-14.3) 01/20/23 20:20 INR Target Range - 01/20/23 20:20 INR 1.53 (0.8-1.3) H 01/20/23 20:20 APTT 35.5 SECONDS (22.9-36.5) 01/20/23 20:20 PTT Comment - 01/20/23 20:20 Sodium 142 mmol/L (136-145) 01/22/23 05:32 Corrected Sodium TNP 01/22/23 05:32 Potassium 4.0 mmol/L (3.5-5.1) 01/22/23 05:32 Chloride 108 mmol/L (98-107) H 01/22/23 05:32 Carbon Dioxide 26.3 mmol/L (21-32) 01/22/23 05:32 BUN 7 mg/dL (7-18) 01/22/23 05:32 Creatinine 0.94 mg/dL (0.55-1.02) 01/22/23 05:32 Est GFR (MDRD) Af Amer > 60 (>60) 01/22/23 05:32 Est GFR (MDRD) Non-Af > 60 (>60) 01/22/23 05:32 Glucose 82 mg/dL (65-99) 01/22/23 05:32 Lactic Acid 0.6 mmol/L (0.4-2.0) 01/20/23 15:38 Calcium 8.4 mg/dL (8.5-10.1) L 01/22/23 05:32 Corrected Calcium 9.2 mg/dL (8.5-10.1) 01/22/23 05:32 Magnesium 2.0 mg/dL (2.0-2.9) 01/22/23 05:32 Total Bilirubin 0.90 mg/dL (0.2-1.0) 01/22/23 05:32 AST 24 Units/L (15-37) 01/22/23 05:32 ALT 12 Units/L (12-78) 01/22/23 05:32 Alkaline Phosphatase 51 Units/L (46-116) 01/22/23 05:32 C-Reactive Protein 2.80 mg/L (0-3.0) 01/20/23 15:38 Total Protein 6.6 g/dL (6.4-8.2) 01/22/23 05:32 Albumin 3.0 g/dL (3.4-5.0) L 01/22/23 05:32 Globulin 3.6 g/dL (2.5-4.5) 01/22/23 05:32 Albumin/Globulin Ratio 0.8 Ratio (1.1-2.1) L 01/22/23 05:32 Amylase 76 Units/L (25-115) 01/20/23 15:38 Lipase 118 Units/L (73-393) 01/20/23 15:38 Specimen Type Clean catch urine 01/20/23 16:06 Urine Color Yellow (YELLOW) 01/20/23 16:06 Urine Appearance Clear (CLEAR) 01/20/23 16:06 Urine pH 5.0 (5.0 - 8.0) 01/20/23 16:06 Ur Specific [place] 1.015 (1.000-1.030) 01/20/23 16:06 Urine Protein 1+ (NEGATIVE) 01/20/23 16:06 Urine Glucose (UA) Negative (NEGATIVE) 01/20/23 16:06 Urine Ketones Negative (NEGATIVE) 01/20/23 16:06 Urine Blood 3+ (NEGATIVE) 01/20/23 16:06 Urine Nitrite Negative (NEGATIVE) 01/20/23 16:06 Urine Bilirubin Negative (NEGATIVE) 01/20/23 16:06 Urine Urobilinogen Normal (NORMAL) 01/20/23 16:06 Ur Leukocyte Esterase 1+ (NEGATIVE) 01/20/23 16:06 Urine RBC 0-2 /HPF (0-3) 01/20/23 16:06 Urine WBC 0-2 /HPF (0-5) 01/20/23 16:06 Ur Squamous Epith Cells Rare /HPF (NEGATIVE) 01/20/23 16:06 Urine Bacteria Negative /HPF (NEGATIVE) 01/20/23 16:06 Ur Culture Indicated? No/not indicated 01/20/23 16:06 Stool Occult Blood Positive (NEGATIVE) A 01/20/23 16:16 Stl Occult Blood (IFOB) Cancelled 01/20/23 16:16 Digoxin 0.70 ng/mL (0.9-2) L 01/22/23 05:32 - Plan (1) Acute colitis Status: Acute Plan: NORMAL SALINE AT 80 ML/HR, ZOSYN 3.375G IV TID, PROTONIX 40MG IV BID, PEPCID 20MG IV Q12H, LOSARTAN 50MG HS. RESUME HOME MEDS (2) Hypertension Status: Chronic Qualifiers: Hypertension type: primary hypertension Qualified Code(s): I10 - Essential (primary) hypertension Plan: LOSARTAN 50MG HS, RESUME LOPRESSOR (3) A-fib Status: Chronic Qualifiers: Atrial fibrillation type: unspecified Qualified Code(s): I48.91 - Unspecified atrial fibrillation Plan: RESUME DIGOXIN AND LOPRESSOR (4) Chronic kidney disease (CKD) Status: Chronic Qualifiers: Chronic kidney disease stage: unspecified stage Qualified Code(s): N18.9 - Chronic kidney disease, unspecified Plan: CONTINUE TO MONITOR (5) Hypothyroidism Status: Chronic Qualifiers: Hypothyroidism type: acquired Qualified Code(s): E03.9 - Hypothyroidism, unspecified Plan: RESUME SYNTHROID (6) LILIAN (generalized anxiety disorder) Status: Chronic Plan: RESUME XANAX (7) Hyperlipidemia Status: Chronic Qualifiers: Hyperlipidemia type: mixed hyperlipidemia Qualified Code(s): E78.2 - Mixed hyperlipidemia Plan: RESUME CRESTOR
[2023-01-22] MEDS: COZAAR PO SCH ×2 (13:16→20:43)
[2023-01-22] MEDS ORDERED: OMNIPAQUE 350 mg/mL 100 mL BTL 100 ML ONE (13:53)
[2023-01-22] MEDS ORDERED: NS 100 ML IV 100 ML ONE (13:53)
[2023-01-22] MEDS ORDERED: CATAPRES TAB 0.1 MG PO ONE (16:56)
--- NOTE | 2023-01-22 17:26 | EKG ---
Test Reason : HYPERTENSIVE PROTOCOL Blood Pressure : */* mmHG Vent. Rate : 62 BPM Atrial Rate : 62 BPM P-R Int : 248 ms QRS Dur : 72 ms QT Int : 376 ms P-R-T Axes : 55 -33 54 degrees QTc Int : 381 ms Sinus rhythm with 1st degree AV block Left axis deviation Minimal voltage criteria for LVH, may be normal variant ( R in aVL ) Inferior infarct (cited on or before 20-APR-2022) Anterolateral infarct (cited on or before 20-APR-2022) Abnormal ECG When compared with ECG of 20-APR-2022 17:03, Sinus rhythm has replaced Atrial fibrillation Questionable change in initial forces of Septal leads Nonspecific T wave abnormality has replaced inverted T waves in Lateral leads Confirmed by Adam Beaver ([id number]) on 01/23/2023 7:56:33 AM Referred By: Confirmed By: Adam Beaver
--- NOTE | 2023-01-22 17:37 | CT ---
EXAM:ABDCMEN/PELVIS WITH CONHISTORY:PERSISTANT ABD PAIN AND DISTENTION;COMPARISON:Non contrasted CT abdomen and pelvis 01/20/2023TECHNIQUE:Multiple CT axial images of the abdomen and pelvis were obtained with IV contrast. Coronal and sagittal images were reconstructed. Dose reduction techniques included Automated Exposure Control (AEC) and adjustment of mA and kV.FINDINGS:Colon wall is still slightly thickened in the descending segment measuring about 9 mm, previously 17 mm. There is still pericolonic edema. The findings represent significantly improved colitis.No pericolonic abscess. No bowel obstruction or free air. Trace amount of pelvic free fluid is noted, not changed from prior study.Cardiomegaly is present. Pericardial effusion may be slightly smaller. Lung bases are clear.The liver is normal in size and configuration. Surgical clips are present in the gallbladder fossa from a cholecystectomy. The spleen is normal in size and shape.The adrenal glands are normal. The pancreas is normal.Small stone mid left kidney measures 2 mm. Renal enhancement is uniform and symmetric with no solid mass. There is no hydronephrosis or significant perirenal edema. The bladder is normally distended. It has no wall thickening or perivesical edema.Degenerative changes are present in the spine.IMPRESSION:1. Significantly improved colitis2. Nonobstructing left renal calculusTHIS IS AN ELECTRONICALLY VERIFIED FINAL [id number]/22/2023 5:25 PM - Electronically signed by Humberto Jay MD
[2023-01-22] MEDS: CRESTOR TAB 10 MG PO SCH (20:44)
[2023-01-22] MEDS: XANAX PO SCH (22:20)
[2023-01-23] MEDS: NS 1,000 ML IV 1,000 ML IV SCH ×2 (01:12→12:35)
[2023-01-23] MEDS: ZOSYN VIAL 3.375 GRAMS 3.375 G in NS 100 ML IV 100 ML IV SCH ×3 (05:38→21:12)
[2023-01-23 05:51] LABS: BASOPHILS # (AUTO) 0.1 X10^3/uL (0.0-0.1); BASOPHILS % (AUTO) 1.1 % (0.2-1.0); EOSINOPHILS # (AUTO) 0.1 x10^3/uL (0.0-0.2); EOSINOPHILS % (AUTO) 1.9 % (0.9-2.9); HEMATOCRIT 33.3 % (36.0-47.0); HEMOGLOBIN 11.2 g/dL (12.0-16.0); LYMPHOCYTES # (AUTO) 2.5 X10^3/uL (1.3-2.9); LYMPHOCYTES % (AUTO) 41.9 % (21.0-51.0); MEAN CORPUSCULAR HEMOGLOBIN 29.2 pg (27.0-34.0); MEAN CORPUSCULAR HGB CONC 33.6 g/dL (33.0-35.0); MEAN CORPUSCULAR VOLUME 86.8 fL (80.0-100.0); MEAN PLATELET VOLUME 9.5 fL (7.4-11.0); MONOCYTES # (AUTO) 0.5 x10^3/uL (0.3-0.8); NEUTROPHILS # (AUTO) 2.8 x10^3/uL (2.2-4.8); NEUTROPHILS % (AUTO) 47.1 % (42.0-75.0); PLATELET COUNT 140 X10^3/uL (150.0-450.0); RED BLOOD COUNT 3.84 X10^6/uL (3.5-5.4); RED CELL DISTRIBUTION WIDTH 15.2 % (11.6-16.5)
[2023-01-23 06:05] LABS: ALANINE AMINOTRANSFERASE 15 Units/L (12-78); ALBUMIN 2.9 g/dL (3.4-5.0); ALKALINE PHOSPHATASE 52 Units/L (46-116); ASPARTATE AMINO TRANSFERASE 23 Units/L (15-37); BLOOD UREA NITROGEN 3 mg/dL (7-18); CALCIUM 8.4 mg/dL (8.5-10.1); CARBON DIOXIDE 28.2 mmol/L (21-32); CHLORIDE 106 mmol/L (98-107); COR CA(FOR HYPOALB) 9.3 mg/dL (8.5-10.1); CREATININE 0.93 mg/dL (0.55-1.02); GLUCOSE 86 mg/dL (65-99); POTASSIUM 3.5 mmol/L (3.5-5.1); SODIUM 143 mmol/L (136-145); TOTAL PROTEIN 6.4 g/dL (6.4-8.2); eGFR NON BLACK RACES > 60 (>60)
[2023-01-23] MEDS ORDERED: CONSULT PHARMACY - POTASSIUM & MAGNESIUM XX SCH ×2 (07:00→09:00)
[2023-01-23] MEDS: PROTONIX INJ 40 MG VIAL IVP SCH ×2 (08:54→21:13)
[2023-01-23] MEDS: PriLOSEC PO SCH ×2 (08:54→21:14)
[2023-01-23] MEDS: PEPCID 20 MG VIAL 20 MG in NS 50 ML IV 50 ML IV SCH ×2 (08:54→21:13)
[2023-01-23] MEDS: LOPRESSOR TAB 25 MG PO SCH ×2 (08:55→21:14)
[2023-01-23] MEDS: SYNTHROID 75 mcg TAB PO SCH (08:55)
[2023-01-23] MEDS ORDERED: K-DUR TAB 20 MEQ PO SCH (09:00)
[2023-01-23 09:20] LABS: CRYPTOSPORIDIUM PARVUM ANTIGEN NEGATIVE (NEGATIVE); GIARDIA LAMBLIA ANTIGEN NEGATIVE (NEGATIVE)
[2023-01-23] MEDS: LANOXIN or DIGITEK PO SCH (10:21)
[2023-01-23] MEDS ORDERED: LOMOTIL PO ONE (10:22)
[2023-01-23] MEDS: MAG-OX TAB PO SCH ×2 (10:22→10:50)
[2023-01-23] MEDS: BENTYL CAP 10 MG PO SCH ×4 (10:51→21:14)
[2023-01-23 11:03] LABS: INR 1.16 (0.8-1.3)
--- NOTE | 2023-01-23 12:18 | PCM.PROG ---
Progress Note - Progress Note for Day of Date of Exam: 01/23/23 - Subjective Subjective: IS CURRENTLY INPATIENT STATUS FOR TREATMENT OF ACUTE COLITIS, ABDOMINAL PAIN, AND GENERLIZED WEAKNESS. SHE HAS A PMH OF GERD, HTN, HYPOTHYROIDISM, RENAL DISEASE, ATRIAL FIBRILLATION, ANXIETY, HYSTERCTOMY, AND THYROIDECTOMY. TODAY, SHE IS ALERT AND ORIENTED, LYING IN BED ON MORNING ROUNDS. SHE CONTINUES TO COMPLAIN OF DIFFUSE ABDOMINAL PAIN AND DISTENTION TODAY. SHE ALSO CONTINUES TO COMPLAINS OF DIARRHEA THIS MORNING. SHE ONLY REPORTS SLIGHT IMPROVEMENT IN SYMPTOMS SINCE YESTERDAY. ON EXAMINATION, HEART IS REGULAR IN RATE AND RHYTHM. BILATERAL LUNGS ARE CLEAR TO AUSCULTATION. ABDOMEN IS ROUND, SOFT, AND NOTED WITH DIFFUSE TENDERNESS. GOOD RANGE OF MOTION NOTED TO UPPER AND LOWER EXTREMITIES WITH NO EDEMA NOTED. HER VITALS THIS MORNING ARE: 98.3-65-20-99%-168/72. LABS WERE OBTAINED. WBC 6.0, RBC 3.84, HGB 11.2, HCT 33.3, PLT COUNT 140, SODIUM 143, POTASSIUM 3.5, CHLORIDE 106, BUN 3, CREATININE 0.93, GLUCOSE 86, CALCIUM 8.4, MAGNESIUM 1.9, AST 23, ALT 15, ALK PHOS 52, TOTAL PROTEIN 6.4, ALBUMIN 2.9. STOOL STUDIES WERE OBTAINED THIS MORNING AND WERE POSITIVE FOR WHITE CELLS. ABDOMEN/PELVIS CT WITH CONTRAST WAS OBTAINED YESTERDAY AND REVEALED: 1. Significantly improved colitis 2. Nonobstructing left renal calculus. SHE IS CURRENTLY RECEIVING NORMAL SALINE AT 80 ML/HR, ZOSYN 3.375G IV TID, PROTONIX 40MG IV BID, PEPCID 20MG IV Q12, LOSARTAN 50MG HS. HER HOME MEDICATIONS OF XANAX, DIGOXIN, SYNTHROID, LOPRESSOR, PRILOSEC, AND CRESTOR WERE RESUMED. TODAY, WE WILL ADD DICYCLOMINE 20MG QID. OTHERWISE, WE WILL CONTINUE WITH CURRENT PLAN OF CARE. WE WILL FOLLOW UP WITH AM LABS AND CONTINUE TO MONITOR. TIME SPENT ON CLINICAL ASSESSMENT, REVIEWING LABS AND IMAGING, DE CISION MAKING, AND DOCUMENTATION GREATER THAN 45 MINUTES. - Past Medical Family Social History Past Med/Fam/Surg Hx: No changes since H&P Allergies: Allergies levofloxacin [From Levaquin] Allergy (Verified 01/20/23 13:30) Sulfa (Sulfonamide Antibiotics) Allergy (Verified 01/20/23 13:30) - Review of Systems ROS: No change since H&P - Vital Signs and I&O's Vital Signs: Vital Signs Temperature 98.3 F Pulse Rate [Right] 60 Pulse Rate 65 Respiratory Rate 20 Blood Pressure [Right Arm] 168/72 O2 Sat by Pulse Oximetry 99 Intake and Output: Intake & Output 01/21/23 01/22/23 01/23/23 01/24/23 11:59 11:59 11:59 11:59 Intake Total 696 / 696 3111 / 3111 1997 Balance 696 / 696 3111 / 3111 1997 - Physical Exam Oriented: Normal Eyes: Normal Ear: Normal Nose: Normal Throat: Normal Respiratory: Normal Cardiovascular: Normal : Normal Auscultation: Bowel Sounds: Normal Palpation: Normal Tenderness: Diffuse, Periumbilical, Moderate Skin: Normal Musculoskeletal: Normal Psychiatric: Normal Mood Description: Calm Affect: Normal Speech Pattern: Clear, Appropriate - Laboratory and Diagnostics Result Diagrams: 01/23/23 05:28 01/23/23 05:28 Labs: 01/23/23 04:14 Stool - Final Laboratory WBC 6.0 X10^3/uL (3.6-10.0) 01/23/23 05:28 RBC 3.84 X10^6/uL (3.5-5.4) 01/23/23 05:28 Hgb 11.2 g/dL (12.0-16.0) L 01/23/23 05:28 Hct 33.3 % (36.0-47.0) L 01/23/23 05:28 MCV 86.8 fL (80.0-100.0) 01/23/23 05:28 MCH 29.2 pg (27.0-34.0) 01/23/23 05:28 MCHC 33.6 g/dL (33.0-35.0) 01/23/23 05:28 RDW 15.2 % (11.6-16.5) 01/23/23 05:28 Plt Count 140 X10^3/uL (150.0-450.0) L 01/23/23 05:28 MPV 9.5 fL (7.4-11.0) 01/23/23 05:28 Neut % (Auto) 47.1 % (42.0-75.0) 01/23/23 05:28 Lymph % (Auto) 41.9 % (21.0-51.0) 01/23/23 05:28 [place] % (Auto) 8.0 % (0.0-13.0) 01/23/23 05:28 Eos % (Auto) 1.9 % (0.9-2.9) 01/23/23 05:28 Baso % (Auto) 1.1 % (0.2-1.0) H 01/23/23 05:28 Neut # (Auto) 2.8 x10^3/uL (2.2-4.8) 01/23/23 05:28 Lymph # (Auto) 2.5 X10^3/uL (1.3-2.9) 01/23/23 05:28 [place] # (Auto) 0.5 x10^3/uL (0.3-0.8) 01/23/23 05:28 Eos # (Auto) 0.1 x10^3/uL (0.0-0.2) 01/23/23 05:28 Baso # (Auto) 0.1 X10^3/uL (0.0-0.1) 01/23/23 05:28 Absolute Nucleated RBC 0.1 /100WBC 01/23/23 05:28 PT 14.6 SECONDS (11.8-14.3) 01/23/23 10:40 INR Target Range - 01/23/23 10:40 INR 1.16 (0.8-1.3) 01/23/23 10:40 APTT 35.5 SECONDS (22.9-36.5) 01/20/23 20:20 PTT Comment - 01/20/23 20:20 Sodium 143 mmol/L (136-145) 01/23/23 05:28 Corrected Sodium TNP 01/23/23 05:28 Potassium 3.5 mmol/L (3.5-5.1) 01/23/23 05:28 Chloride 106 mmol/L (98-107) 01/23/23 05:28 Carbon Dioxide 28.2 mmol/L (21-32) 01/23/23 05:28 BUN 3 mg/dL (7-18) L 01/23/23 05:28 Creatinine 0.93 mg/dL (0.55-1.02) 01/23/23 05:28 Est GFR (MDRD) Af Amer > 60 (>60) 01/23/23 05:28 Est GFR (MDRD) Non-Af > 60 (>60) 01/23/23 05:28 Glucose 86 mg/dL (65-99) 01/23/23 05:28 Lactic Acid 0.6 mmol/L (0.4-2.0) 01/20/23 15:38 Calcium 8.4 mg/dL (8.5-10.1) L 01/23/23 05:28 Corrected Calcium 9.3 mg/dL (8.5-10.1) 01/23/23 05:28 Magnesium 1.9 mg/dL (2.0-2.9) L 01/23/23 05:28 Total Bilirubin 0.90 mg/dL (0.2-1.0) 01/23/23 05:28 AST 23 Units/L (15-37) 01/23/23 05:28 ALT 15 Units/L (12-78) 01/23/23 05:28 Alkaline Phosphatase 52 Units/L (46-116) 01/23/23 05:28 C-Reactive Protein 2.80 mg/L (0-3.0) 01/20/23 15:38 Total Protein 6.4 g/dL (6.4-8.2) 01/23/23 05:28 Albumin 2.9 g/dL (3.4-5.0) L 01/23/23 05:28 Globulin 3.5 g/dL (2.5-4.5) 01/23/23 05:28 Albumin/Globulin Ratio 0.8 Ratio (1.1-2.1) L 01/23/23 05:28 Amylase 76 Units/L (25-115) 01/20/23 15:38 Lipase 118 Units/L (73-393) 01/20/23 15:38 Specimen Type Clean catch urine 01/20/23 16:06 Urine Color Yellow (YELLOW) 01/20/23 16:06 Urine Appearance Clear (CLEAR) 01/20/23 16:06 Urine pH 5.0 (5.0 - 8.0) 01/20/23 16:06 Ur Specific [place] 1.015 (1.000-1.030) 01/20/23 16:06 Urine Protein 1+ (NEGATIVE) 01/20/23 16:06 Urine Glucose (UA) Negative (NEGATIVE) 01/20/23 16:06 Urine Ketones Negative (NEGATIVE) 01/20/23 16:06 Urine Blood 3+ (NEGATIVE) 01/20/23 16:06 Urine Nitrite Negative (NEGATIVE) 01/20/23 16:06 Urine Bilirubin Negative (NEGATIVE) 01/20/23 16:06 Urine Urobilinogen Normal (NORMAL) 01/20/23 16:06 Ur Leukocyte Esterase 1+ (NEGATIVE) 01/20/23 16:06 Urine RBC 0-2 /HPF (0-3) 01/20/23 16:06 Urine WBC 0-2 /HPF (0-5) 01/20/23 16:06 Ur Squamous Epith Cells Rare /HPF (NEGATIVE) 01/20/23 16:06 Urine Bacteria Negative /HPF (NEGATIVE) 01/20/23 16:06 Ur Culture Indicated? No/not indicated 01/20/23 16:06 Stool Occult Blood Positive (NEGATIVE) A 01/20/23 16:16 Stl Occult Blood (IFOB) Cancelled 01/20/23 16:16 Stool for White Cells Positive (NEGATIVE) A 01/23/23 04:14 Stl C. diff Tox B Gene Negative (NEGATIVE) 01/23/23 04:14 Stl C. diff [id number] Presumptive negative (NEGATIVE) 01/23/23 04:14 Stool H. pylori Ag Negative (NEGATIVE) 01/23/23 04:14 Digoxin 0.70 ng/mL (0.9-2) L 01/22/23 05:32 Cryptosporid parvum Ag Negative (NEGATIVE) 01/23/23 04:14 Giardia lamblia Ag Negative (NEGATIVE) 01/23/23 04:14 - Plan (1) Acute colitis Status: Acute Plan: NORMAL SALINE AT 80 ML/HR, ZOSYN 3.375G IV TID, PROTONIX 40MG IV BID, PEPCID 20MG IV Q12H, DICYCLOMINE 20MG QID, LOSARTAN 50MG HS. RESUME HOME MEDS (2) Hypertension Status: Chronic Qualifiers: Hypertension type: primary hypertension Qualified Code(s): I10 - Essential (primary) hypertension Plan: LOSARTAN 50MG HS, RESUME LOPRESSOR (3) A-fib Status: Chronic Qualifiers: Atrial fibrillation type: unspecified Qualified Code(s): I48.91 - Unspecified atrial fibrillation Plan: RESUME DIGOXIN AND LOPRESSOR (4) Chronic kidney disease (CKD) Status: Chronic Qualifiers: Chronic kidney disease stage: unspecified stage Qualified Code(s): N18.9 - Chronic kidney disease, unspecified Plan: CONTINUE TO MONITOR (5) Hypothyroidism Status: Chronic Qualifiers: Hypothyroidism type: acquired Qualified Code(s): E03.9 - Hypothyroidism, unspecified Plan: RESUME SYNTHROID (6) LILIAN (generalized anxiety disorder) Status: Chronic Plan: RESUME XANAX (7) Hyperlipidemia Status: Chronic Qualifiers: Hyperlipidemia type: mixed hyperlipidemia Qualified Code(s): E78.2 - Mixed hyperlipidemia Plan: RESUME CRESTOR
[2023-01-23] MEDS: XANAX PO SCH (21:14)
[2023-01-23] MEDS: CRESTOR TAB 10 MG PO SCH (21:15)
[2023-01-23] MEDS: COZAAR PO SCH (21:15)
[2023-01-23] MEDS ORDERED: RESTORIL CAP 15 MG PO PRN (22:42)
[2023-01-23] MEDS ORDERED: RESTORIL CAP 15 MG PO ONE (22:44)
[2023-01-24] MEDS: NS 1,000 ML IV 1,000 ML IV SCH (05:00)
[2023-01-24] MEDS: ZOSYN VIAL 3.375 GRAMS 3.375 G in NS 100 ML IV 100 ML IV SCH (05:02)
[2023-01-24 05:06] LABS: BASOPHILS # (AUTO) 0.1 X10^3/uL (0.0-0.1); BASOPHILS % (AUTO) 1.3 % (0.2-1.0); EOSINOPHILS # (AUTO) 0.1 x10^3/uL (0.0-0.2); EOSINOPHILS % (AUTO) 1.8 % (0.9-2.9); HEMATOCRIT 35.6 % (36.0-47.0); HEMOGLOBIN 12.1 g/dL (12.0-16.0); LYMPHOCYTES # (AUTO) 3.1 X10^3/uL (1.3-2.9); LYMPHOCYTES % (AUTO) 41.8 % (21.0-51.0); MEAN CORPUSCULAR HEMOGLOBIN 29.3 pg (27.0-34.0); MEAN CORPUSCULAR VOLUME 86.2 fL (80.0-100.0); MEAN PLATELET VOLUME 9.5 fL (7.4-11.0); MONOCYTES # (AUTO) 0.5 x10^3/uL (0.3-0.8); MONOCYTES % (AUTO) 7.3 % (0.0-13.0); NEUTROPHILS # (AUTO) 3.5 x10^3/uL (2.2-4.8); NEUTROPHILS % (AUTO) 47.8 % (42.0-75.0); PLATELET COUNT 160 X10^3/uL (150.0-450.0); RED BLOOD COUNT 4.13 X10^6/uL (3.5-5.4); RED CELL DISTRIBUTION WIDTH 15.1 % (11.6-16.5); WHITE BLOOD COUNT 7.4 X10^3/uL (3.6-10.0)
[2023-01-24 05:13] LABS: ALANINE AMINOTRANSFERASE 17 Units/L (12-78); ALBUMIN 3.4 g/dL (3.4-5.0); ALKALINE PHOSPHATASE 56 Units/L (46-116); ASPARTATE AMINO TRANSFERASE 26 Units/L (15-37); BLOOD UREA NITROGEN 4 mg/dL (7-18); CALCIUM 8.9 mg/dL (8.5-10.1); CARBON DIOXIDE 29.2 mmol/L (21-32); CHLORIDE 105 mmol/L (98-107); CREATININE 0.96 mg/dL (0.55-1.02); GLUCOSE 82 mg/dL (65-99); POTASSIUM 3.6 mmol/L (3.5-5.1); SODIUM 143 mmol/L (136-145); TOTAL PROTEIN 7.3 g/dL (6.4-8.2); eGFR NON BLACK RACES 59 (>60)
[2023-01-24] MEDS ORDERED: CONSULT PHARMACY - POTASSIUM & MAGNESIUM XX SCH (06:00)
[2023-01-24] MEDS: PriLOSEC PO SCH (08:47)
[2023-01-24] MEDS: PROTONIX INJ 40 MG VIAL IVP SCH (08:47)
[2023-01-24] MEDS: LOPRESSOR TAB 25 MG PO SCH (08:47)
[2023-01-24] MEDS: SYNTHROID 75 mcg TAB PO SCH (08:47)
[2023-01-24] MEDS: BENTYL CAP 10 MG PO SCH (08:47)
[2023-01-24] MEDS: LANOXIN or DIGITEK PO SCH (08:48)
[2023-01-24] MEDS: PEPCID 20 MG VIAL 20 MG in NS 50 ML IV 50 ML IV SCH (08:48)
[2023-01-24] MEDS ORDERED: K-DUR TAB 20 MEQ PO SCH (09:00)
[2023-01-24 09:52] VITALS: BP 156/71; PULSE 63; TEMP 97.9; O2SAT 96
== END 2023-01-24 10:35 | disposition home or self-care (01) | DRG 392 ==
LOC: ER 13:14 → MED/SURG 20:49
PROVIDERS: ADMIT Internal Medicine; ATTEND Internal Medicine
DX: R53.1 Weakness; R10.84 Generalized abdominal pain; R79.1 Abnormal coagulation profile; K92.1 Melena; I48.91 Unspecified atrial fibrillation; K21.9 Gastro-esophageal reflux disease without esophagitis; I12.9 Hypertensive chronic kidney disease with stage 1 through stage 4 chronic kidney disease, or unspecified chronic kidney disease; E03.8 Other specified hypothyroidism; N18.9 Chronic kidney disease, unspecified; F41.8 Other specified anxiety disorders; K52.89 Other specified noninfective gastroenteritis and colitis; E83.42 Hypomagnesemia; R55 Syncope and collapse

== ENCOUNTER 2023-10-02 16:12 | Observation (INO) ==
--- NOTE | 2023-10-02 16:43 | DR.GENAD ---
HPI Time Seen Time Seen by Provider: 10/02/23 16:41 PCP Primary Care Physician: Hawa Conrad Complaint/Symptoms Chief Complaint Doctors Comments: 83-year-old female referred to the ER from her PCPs office today. Patient was fine this a.m. She got up to help make breakfast. She developed chest discomfort, describes as a pressure-like sensation. Discomfort does not radiate. Nothing makes it better, nothing makes it worse. Feels a bit short of breath with it, no diaphoresis, no nausea or vomiting. Denies recent illness. No fever, chills, URI symptoms, cough, bowel or bladder issues. Chief Complaint:: Patient was sent after evaluation at PCP for abnormal EKG. Patient states she has a history of afib but has been feeling weak the past few days. She reports a near syncopal episode this am at breakfast and has had chest pressure and increased weakness since. COVID-19 Coronavirus risk:travel/contact w/high risk person: No Has patient experienced Coronavirus symptoms: No Source History Provided: Patient and Family Member Mode of Arrival Mode of Arrival: Ambulatory Timing Onset of Chief Complaint: 10/02/23 PMH PMH Past Medical History: Yes Past Medical History: GERD, Hypertension, Hypothyroidism and Renal Disease Past Surgical History: Yes Surgical History: Hysterectomy, Thyroidectomy and Other Family History History of Family Medical Conditions: Yes Family Medical History: Hypertension Social History Does patient currently use any type of tobacco product: No Have you used tobacco products in the last 12 months: No Type of Tobacco Use: None Does any household member use tobacco: No Alcohol Use: None Do you use any recreational Drugs:: No Lives With: Family Lives Where: Home Travel Risk Coronavirus risk:travel/contact w/high risk person: No Has patient experienced Coronavirus symptoms: No Infectious screening In the last 2 months have you had wt loss of >10#?: NO Have you had fever, night sweats or hemotysis?: No Have you traveled outside the country in the last 6 months?: No Isolation: Standard ROS Review of Systems Constitutional: Weakness Eyes: No Symptoms Reported ENTM: No Symptoms Reported Respiratoy: No Symptoms Reported Cardiovascular: Chest Pain Gastrointestinal/Abdominal: No Symptoms Reported Genitourinary: No Symptoms Reported Neurological: Weakness Musculoskeletal: No Symptoms Reported Integumentary: No Symptoms Reported Hematologic/Lymphatic: No Symptoms Reported All Other Systems: Reviewed and Negative PE Vital Signs Vitals: Vital Signs Temperature 98.2 F Pulse Rate 82 Pulse Rate 80 Pulse Rate 82 Pulse Rate 81 Pulse Rate 80 Pulse Rate 86 Pulse Rate 79 Pulse Rate 75 Pulse Rate 76 Pulse Rate 74 Pulse Rate 76 Pulse Rate 77 Pulse Rate 71 Pulse Rate 76 Pulse Rate 75 Respiratory Rate 20 Respiratory Rate 18 Respiratory Rate 18 Respiratory Rate 17 Respiratory Rate 28 Respiratory Rate 17 Respiratory Rate 27 Respiratory Rate 21 Respiratory Rate 17 Respiratory Rate 19 Respiratory Rate 20 Respiratory Rate 18 Respiratory Rate 23 Respiratory Rate 15 Respiratory Rate 17 Respiratory Rate 24 Blood Pressure 149/67 Blood Pressure 165/70 Blood Pressure 151/67 Blood Pressure 132/82 Blood Pressure 146/67 Blood Pressure 176/77 Blood Pressure 193/84 Blood Pressure 213/84 Blood Pressure 214/99 Blood Pressure 193/82 Blood Pressure 221/100 O2 Sat by Pulse Oximetry 99 O2 Sat by Pulse Oximetry 99 O2 Sat by Pulse Oximetry 99 O2 Sat by Pulse Oximetry 100 O2 Sat by Pulse Oximetry 96 O2 Sat by Pulse Oximetry 92 O2 Sat by Pulse Oximetry 98 O2 Sat by Pulse Oximetry 97 O2 Sat by Pulse Oximetry 98 O2 Sat by Pulse Oximetry 98 O2 Sat by Pulse Oximetry 97 O2 Sat by Pulse Oximetry 98 O2 Sat by Pulse Oximetry 99 O2 Sat by Pulse Oximetry 100 General General Appearance: Alert and In No Apparent Distress Eyes Eye exam: PERRL and EOMI ENT ENT Exam: Normal Exam and Mucous Membranes Moist Neck Neck Exam: Normal Inspection and Full ROM; negative Tenderness Chest Chest Inspection: negative Tenderness Respiratory Respiratory Exam: Normal Lung Sounds Bilat; negative Accessory Muscle Use or Respiratory Distress Cardiovascular Cardiovascular Exam: Regular Rate, Normal Rhythm and Normal Heart Sounds Abdominal Exam Abdominal Exam: Normal Bowel Sounds and Soft; negative Tenderness Extremities Extremities Exam: Normal Inspection and Full ROM; negative Edema Back Back Exam: Normal Inspection Neurologic Neurological Exam: Alert, Oriented X3 and CN II-XII Intact; negative Motor Sensory Deficit Skin Skin Exam: Warm and Dry COURSE Treatment Treatment: 83-year-old female with chest discomfort since this a.m. In no distress. Patient does not want to call pain states it is a pressure sensation. Does not move, nothing makes it better nothing is worse. Workup initiated. EKG without acute ischemic changes. Chest x-ray without acute abnormalities. BP elevated, was given dose of IV hydralazine. Labs overall acceptable. Initial troponin normal at 28.6, 2-hour repeat still normal at 35.3, minimal elevation. Pt states she feels the same. Trial of one SL NTG tablet given. 1931 - no better, no worse with NTG. Maintaining BP. Trial of GI cocktail. Signed over to relief , not much better, admitted. ROR Labs Reviewed Laboratory Results Reviewed?: Yes 10/03/23 06:24 10/03/23 06:24 Laboratory: WBC 8.0 X10^3/uL (3.6-10.0) 10/02/23 16:40 RBC 4.23 X10^6/uL (3.5-5.4) 10/02/23 16:40 Hgb 12.8 g/dL (12.0-16.0) 10/02/23 16:40 Hct 38.3 % (36.0-47.0) 10/02/23 16:40 MCV 90.4 fL (80.0-100.0) 10/02/23 16:40 MCH 30.2 pg (27.0-34.0) 10/02/23 16:40 MCHC 33.3 g/dL (33.0-35.0) 10/02/23 16:40 RDW 15.5 % (11.6-16.5) 10/02/23 16:40 Plt Count 193 X10^3/uL (150.0-450.0) 10/02/23 16:40 MPV 9.2 fL (7.4-11.0) 10/02/23 16:40 Neut % (Auto) 43.1 % (42.0-75.0) 10/02/23 16:40 Lymph % (Auto) 45.4 % (21.0-51.0) 10/02/23 16:40 [place] % (Auto) 7.6 % (0.0-13.0) 10/02/23 16:40 Eos % (Auto) 2.5 % (0.9-2.9) 10/02/23 16:40 Baso % (Auto) 1.4 % (0.2-1.0) H 10/02/23 16:40 Neut # (Auto) 3.4 x10^3/uL (2.2-4.8) 10/02/23 16:40 Lymph # (Auto) 3.6 X10^3/uL (1.3-2.9) H 10/02/23 16:40 [place] # (Auto) 0.6 x10^3/uL (0.3-0.8) 10/02/23 16:40 Eos # (Auto) 0.2 x10^3/uL (0.0-0.2) 10/02/23 16:40 Baso # (Auto) 0.1 X10^3/uL (0.0-0.1) 10/02/23 16:40 Absolute Nucleated RBC 0.1 /100WBC 10/02/23 16:40 Sodium 140 mmol/L (136-145) 10/02/23 16:40 Corrected Sodium TNP 10/02/23 16:40 Potassium 4.3 mmol/L (3.5-5.1) 10/02/23 16:40 Chloride 103 mmol/L (98-107) 10/02/23 16:40 Carbon Dioxide 29.8 mmol/L (21-32) 10/02/23 16:40 BUN 17 mg/dL (7-18) 10/02/23 16:40 Creatinine 1.05 mg/dL (0.55-1.02) H 10/02/23 16:40 Est GFR (MDRD) Af Amer > 60 (>60) 10/02/23 16:40 Est GFR (MDRD) Non-Af 53 (>60) L 10/02/23 16:40 Glucose 96 mg/dL (65-99) 10/02/23 16:40 Calcium 9.4 mg/dL (8.5-10.1) 10/02/23 16:40 Corrected Calcium TNP 10/02/23 16:40 Total Bilirubin 0.90 mg/dL (0.2-1.0) 10/02/23 16:40 AST 21 Units/L (15-37) 10/02/23 16:40 ALT 22 Units/L (12-78) 10/02/23 16:40 Alkaline Phosphatase 51 Units/L (46-116) 10/02/23 16:40 Troponin I High Sens 35.3 ng/L (4.0-60.0) 10/02/23 18:25 Total Protein 7.8 g/dL (6.4-8.2) 10/02/23 16:40 Albumin 4.0 g/dL (3.4-5.0) 10/02/23 16:40 Globulin 3.8 g/dL (2.5-4.5) 10/02/23 16:40 Albumin/Globulin Ratio 1.1 Ratio (1.1-2.1) 10/02/23 16:40 Lipase 43 Units/L (16-77) 10/02/23 16:40 TSH 3rd Generation 0.482 uIU/mL (0.358-3.74) 10/02/23 16:40 Specimen Type Clean catch urine 10/02/23 16:36 Urine Color Yellow (YELLOW) 10/02/23 16:36 Urine Appearance Clear (CLEAR) 10/02/23 16:36 Urine pH 6.5 (5.0 - 8.0) 10/02/23 16:36 Ur Specific [place] 1.010 (1.000-1.030) 10/02/23 16:36 Urine Protein Negative (NEGATIVE) 10/02/23 16:36 Urine Glucose (UA) Negative (NEGATIVE) 10/02/23 16:36 Urine Ketones Negative (NEGATIVE) 10/02/23 16:36 Urine Blood 1+ (NEGATIVE) 10/02/23 16:36 Urine Nitrite Negative (NEGATIVE) 10/02/23 16:36 Urine Bilirubin Negative (NEGATIVE) 10/02/23 16:36 Urine Urobilinogen Normal (NORMAL) 10/02/23 16:36 Ur Leukocyte Esterase 1+ (NEGATIVE) 10/02/23 16:36 Urine RBC 3-5 /HPF (0-3) A 10/02/23 16:36 Urine WBC 0-2 /HPF (0-5) 10/02/23 16:36 Ur Squamous Epith Cells Few /HPF (NEGATIVE) 10/02/23 16:36 Urine Bacteria Negative /HPF (NEGATIVE) 10/02/23 16:36 Ur Culture Indicated? No/not indicated 10/02/23 16:36 Labs acceptable XRAY XRAY Interpreted by: Self X-ray Results: CXR - no acute abnormalities EKG Rate: 82 [place]: LAD Rhythm: Afib ST: Nonsp Opioid Opioid Risk Tool Age (Vadim box if 16-45): No History of Preadolescent Sexual Abuse: No Total: 0 Total Score Risk Category: Low Risk Copyright: José Luis GARZA predicting aberrant behaviors Discharge Plan Diagnosis Discharge Problem: Chest pain Discharge Plan Patient Disposition: 09 ADMITTED INPATIENT Condition: Stable
[2023-10-02 16:44] LABS: BILIRUBIN,URINE NEGATIVE (NEGATIVE); BLOOD/HEMOGLOBIN,URINE 1+ (NEGATIVE); GLUCOSE, URINE NEGATIVE (NEGATIVE); KETONES,URINE NEGATIVE (NEGATIVE); LEUKOCYTE ESTERASE ,URINE 1+ (NEGATIVE); NITRITES,URINE NEGATIVE (NEGATIVE); PH,URINE 6.5 (5.0 - 8.0); PROTEIN,URINE NEGATIVE (NEGATIVE); UROBILINOGEN,URINE NORMAL (NORMAL)
[2023-10-02 16:51] LABS: BASOPHILS # (AUTO) 0.1 X10^3/uL (0.0-0.1); BASOPHILS % (AUTO) 1.4 % (0.2-1.0); EOSINOPHILS # (AUTO) 0.2 x10^3/uL (0.0-0.2); EOSINOPHILS % (AUTO) 2.5 % (0.9-2.9); HEMATOCRIT 38.3 % (36.0-47.0); HEMOGLOBIN 12.8 g/dL (12.0-16.0); LYMPHOCYTES # (AUTO) 3.6 X10^3/uL (1.3-2.9); LYMPHOCYTES % (AUTO) 45.4 % (21.0-51.0); MEAN CORPUSCULAR HEMOGLOBIN 30.2 pg (27.0-34.0); MEAN CORPUSCULAR HGB CONC 33.3 g/dL (33.0-35.0); MEAN CORPUSCULAR VOLUME 90.4 fL (80.0-100.0); MEAN PLATELET VOLUME 9.2 fL (7.4-11.0); MONOCYTES # (AUTO) 0.6 x10^3/uL (0.3-0.8); MONOCYTES % (AUTO) 7.6 % (0.0-13.0); NEUTROPHILS # (AUTO) 3.4 x10^3/uL (2.2-4.8); NEUTROPHILS % (AUTO) 43.1 % (42.0-75.0); PLATELET COUNT 193 X10^3/uL (150.0-450.0); RED BLOOD COUNT 4.23 X10^6/uL (3.5-5.4); RED CELL DISTRIBUTION WIDTH 15.5 % (11.6-16.5)
--- NOTE | 2023-10-02 16:53 | EKG ---
Test Reason : abnormal ekg Blood Pressure : */* mmHG Vent. 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
[2023-10-02 16:54] LABS: APPEARANCE,URINE CLEAR (CLEAR); COLOR,URINE YELLOW (YELLOW)
[2023-10-02 16:55] LABS: BACTERIA,URINE NEGATIVE /HPF (NEGATIVE); SQUAMOUS EPITHELIAL CELL,UR FEW /HPF (NEGATIVE)
[2023-10-02 17:11] LABS: ALANINE AMINOTRANSFERASE 22 Units/L (12-78); ALKALINE PHOSPHATASE 51 Units/L (46-116); ASPARTATE AMINO TRANSFERASE 21 Units/L (15-37); BLOOD UREA NITROGEN 17 mg/dL (7-18); CALCIUM 9.4 mg/dL (8.5-10.1); CARBON DIOXIDE 29.8 mmol/L (21-32); CHLORIDE 103 mmol/L (98-107); CREATININE 1.05 mg/dL (0.55-1.02); GLUCOSE 96 mg/dL (65-99); LIPASE 43 Units/L (16-77); POTASSIUM 4.3 mmol/L (3.5-5.1); SODIUM 140 mmol/L (136-145); TOTAL PROTEIN 7.8 g/dL (6.4-8.2); TSH (3RD GENERATION) 0.482 uIU/mL (0.358-3.74); eGFR NON BLACK RACES 53 (>60)
[2023-10-02] MEDS ORDERED: APRESOLINE INJ 20 MG VIAL ONE (17:16)
[2023-10-02] MEDS: APRESOLINE INJ 20 MG VIAL IVP ONE (17:25)
[2023-10-02] MEDS ORDERED: NITROSTAT ONE (19:02)
[2023-10-02] MEDS: NITROSTAT SL ONE (19:06)
[2023-10-02] MEDS ORDERED: LEVSIN/MAALOX/LIDOC VISC ONE (19:32)
[2023-10-02] MEDS: LEVSIN/MAALOX/LIDOC VISC PO ONE (19:38)
--- NOTE | 2023-10-02 21:15 | DR.GENAD ---
HPI Time Seen Time Seen by Provider: 10/02/23 16:41 PCP Primary Care Physician: Hawa Conrad Complaint/Symptoms Chief Complaint:: Patient was sent after evaluation at PCP for abnormal EKG. Patient states she has a history of afib but has been feeling weak the past few days. She reports a near syncopal episode this am at breakfast and has had chest pressure and increased weakness since. COVID-19 Coronavirus risk:travel/contact w/high risk person: No Has patient experienced Coronavirus symptoms: No Source History Provided: Patient and Family Member Mode of Arrival Mode of Arrival: Ambulatory Timing Onset of Chief Complaint: 10/02/23 PMH PMH Past Medical History: Yes Past Medical History: GERD, Hypertension, Hypothyroidism and Renal Disease Past Surgical History: Yes Surgical History: Hysterectomy, Thyroidectomy and Other Family History History of Family Medical Conditions: Yes Family Medical History: Hypertension Social History Does patient currently use any type of tobacco product: No Have you used tobacco products in the last 12 months: No Type of Tobacco Use: None Does any household member use tobacco: No Alcohol Use: None Do you use any recreational Drugs:: No Lives With: Family Lives Where: Home Travel Risk Coronavirus risk:travel/contact w/high risk person: No Has patient experienced Coronavirus symptoms: No Infectious screening In the last 2 months have you had wt loss of >10#?: NO Have you had fever, night sweats or hemotysis?: No Have you traveled outside the country in the last 6 months?: No Isolation: Standard PE Vital Signs Vitals: Vital Signs Temperature 98.2 F Pulse Rate 76 Pulse Rate 77 Pulse Rate 78 Pulse Rate 78 Pulse Rate 74 Pulse Rate 75 Pulse Rate 76 Pulse Rate 80 Pulse Rate 76 Pulse Rate 80 Pulse Rate 77 Pulse Rate 79 Pulse Rate 81 Pulse Rate 81 Pulse Rate 79 Pulse Rate 79 Pulse Rate 80 Pulse Rate 80 Pulse Rate 74 Pulse Rate 74 Pulse Rate 80 Pulse Rate 85 Pulse Rate 87 Pulse Rate 97 Pulse Rate 80 Pulse Rate 82 Pulse Rate 80 Pulse Rate 82 Pulse Rate 81 Pulse Rate 80 Pulse Rate 86 Pulse Rate 79 Pulse Rate 75 Pulse Rate 76 Pulse Rate 74 Pulse Rate 76 Pulse Rate 77 Pulse Rate 71 Pulse Rate 76 Pulse Rate 75 Respiratory Rate 26 Respiratory Rate 18 Respiratory Rate 31 Respiratory Rate 31 Respiratory Rate 22 Respiratory Rate 19 Respiratory Rate 27 Respiratory Rate 21 Respiratory Rate 18 Respiratory Rate 24 Respiratory Rate 24 Respiratory Rate 22 Respiratory Rate 32 Respiratory Rate 18 Respiratory Rate 22 Respiratory Rate 18 Respiratory Rate 18 Respiratory Rate 16 Respiratory Rate 18 Respiratory Rate 20 Respiratory Rate 23 Respiratory Rate 22 Respiratory Rate 18 Respiratory Rate 19 Respiratory Rate 18 Respiratory Rate 29 Respiratory Rate 24 Respiratory Rate 18 Respiratory Rate 18 Respiratory Rate 17 Respiratory Rate 28 Respiratory Rate 17 Respiratory Rate 27 Respiratory Rate 21 Respiratory Rate 17 Respiratory Rate 19 Respiratory Rate 20 Respiratory Rate 18 Respiratory Rate 23 Respiratory Rate 15 Respiratory Rate 17 Respiratory Rate 24 Blood Pressure 149/86 Blood Pressure 142/63 Blood Pressure 137/63 Blood Pressure 147/68 Blood Pressure 131/61 Blood Pressure 132/63 Blood Pressure 158/71 Blood Pressure 118/60 Blood Pressure 186/85 Blood Pressure 160/76 Blood Pressure 166/76 Blood Pressure 140/69 Blood Pressure 137/65 Blood Pressure 117/57 Blood Pressure 178/74 Blood Pressure 145/67 Blood Pressure 144/96 Blood Pressure 139/90 Blood Pressure 138/65 Blood Pressure 149/67 Blood Pressure 165/70 Blood Pressure 151/67 Blood Pressure 132/82 Blood Pressure 146/67 Blood Pressure 176/77 Blood Pressure 193/84 Blood Pressure 213/84 Blood Pressure 214/99 Blood Pressure 193/82 Blood Pressure 221/100 O2 Sat by Pulse Oximetry 98 O2 Sat by Pulse Oximetry 98 O2 Sat by Pulse Oximetry 98 O2 Sat by Pulse Oximetry 98 O2 Sat by Pulse Oximetry 98 O2 Sat by Pulse Oximetry 98 O2 Sat by Pulse Oximetry 98 O2 Sat by Pulse Oximetry 98 O2 Sat by Pulse Oximetry 99 O2 Sat by Pulse Oximetry 90 O2 Sat by Pulse Oximetry 99 O2 Sat by Pulse Oximetry 99 O2 Sat by Pulse Oximetry 98 O2 Sat by Pulse Oximetry 99 O2 Sat by Pulse Oximetry 98 O2 Sat by Pulse Oximetry 97 O2 Sat by Pulse Oximetry 97 O2 Sat by Pulse Oximetry 98 O2 Sat by Pulse Oximetry 99 O2 Sat by Pulse Oximetry 98 O2 Sat by Pulse Oximetry 99 O2 Sat by Pulse Oximetry 100 O2 Sat by Pulse Oximetry 97 O2 Sat by Pulse Oximetry 96 O2 Sat by Pulse Oximetry 99 O2 Sat by Pulse Oximetry 99 O2 Sat by Pulse Oximetry 99 O2 Sat by Pulse Oximetry 100 O2 Sat by Pulse Oximetry 96 O2 Sat by Pulse Oximetry 92 O2 Sat by Pulse Oximetry 98 O2 Sat by Pulse Oximetry 97 O2 Sat by Pulse Oximetry 98 O2 Sat by Pulse Oximetry 98 O2 Sat by Pulse Oximetry 97 O2 Sat by Pulse Oximetry 98 O2 Sat by Pulse Oximetry 99 O2 Sat by Pulse Oximetry 100 [facility] Labs Reviewed 10/04/23 05:28 10/04/23 05:28 Laboratory: WBC 8.0 X10^3/uL (3.6-10.0) 10/02/23 16:40 RBC 4.23 X10^6/uL (3.5-5.4) 10/02/23 16:40 Hgb 12.8 g/dL (12.0-16.0) 10/02/23 16:40 Hct 38.3 % (36.0-47.0) 10/02/23 16:40 MCV 90.4 fL (80.0-100.0) 10/02/23 16:40 MCH 30.2 pg (27.0-34.0) 10/02/23 16:40 MCHC 33.3 g/dL (33.0-35.0) 10/02/23 16:40 RDW 15.5 % (11.6-16.5) 10/02/23 16:40 Plt Count 193 X10^3/uL (150.0-450.0) 10/02/23 16:40 MPV 9.2 fL (7.4-11.0) 10/02/23 16:40 Neut % (Auto) 43.1 % (42.0-75.0) 10/02/23 16:40 Lymph % (Auto) 45.4 % (21.0-51.0) 10/02/23 16:40 [place] % (Auto) 7.6 % (0.0-13.0) 10/02/23 16:40 Eos % (Auto) 2.5 % (0.9-2.9) 10/02/23 16:40 Baso % (Auto) 1.4 % (0.2-1.0) H 10/02/23 16:40 Neut # (Auto) 3.4 x10^3/uL (2.2-4.8) 10/02/23 16:40 Lymph # (Auto) 3.6 X10^3/uL (1.3-2.9) H 10/02/23 16:40 [place] # (Auto) 0.6 x10^3/uL (0.3-0.8) 10/02/23 16:40 Eos # (Auto) 0.2 x10^3/uL (0.0-0.2) 10/02/23 16:40 Baso # (Auto) 0.1 X10^3/uL (0.0-0.1) 10/02/23 16:40 Absolute Nucleated RBC 0.1 /100WBC 10/02/23 16:40 Sodium 140 mmol/L (136-145) 10/02/23 16:40 Corrected Sodium TNP 10/02/23 16:40 Potassium 4.3 mmol/L (3.5-5.1) 10/02/23 16:40 Chloride 103 mmol/L (98-107) 10/02/23 16:40 Carbon Dioxide 29.8 mmol/L (21-32) 10/02/23 16:40 BUN 17 mg/dL (7-18) 10/02/23 16:40 Creatinine 1.05 mg/dL (0.55-1.02) H 10/02/23 16:40 Est GFR (MDRD) Af Amer > 60 (>60) 10/02/23 16:40 Est GFR (MDRD) Non-Af 53 (>60) L 10/02/23 16:40 Glucose 96 mg/dL (65-99) 10/02/23 16:40 Calcium 9.4 mg/dL (8.5-10.1) 10/02/23 16:40 Corrected Calcium TNP 10/02/23 16:40 Total Bilirubin 0.90 mg/dL (0.2-1.0) 10/02/23 16:40 AST 21 Units/L (15-37) 10/02/23 16:40 ALT 22 Units/L (12-78) 10/02/23 16:40 Alkaline Phosphatase 51 Units/L (46-116) 10/02/23 16:40 Troponin I High Sens 35.3 ng/L (4.0-60.0) 10/02/23 18:25 Total Protein 7.8 g/dL (6.4-8.2) 10/02/23 16:40 Albumin 4.0 g/dL (3.4-5.0) 10/02/23 16:40 Globulin 3.8 g/dL (2.5-4.5) 10/02/23 16:40 Albumin/Globulin Ratio 1.1 Ratio (1.1-2.1) 10/02/23 16:40 Lipase 43 Units/L (16-77) 10/02/23 16:40 TSH 3rd Generation 0.482 uIU/mL (0.358-3.74) 10/02/23 16:40 Specimen Type Clean catch urine 10/02/23 16:36 Urine Color Yellow (YELLOW) 10/02/23 16:36 Urine Appearance Clear (CLEAR) 10/02/23 16:36 Urine pH 6.5 (5.0 - 8.0) 10/02/23 16:36 Ur Specific [place] 1.010 (1.000-1.030) 10/02/23 16:36 Urine Protein Negative (NEGATIVE) 10/02/23 16:36 Urine Glucose (UA) Negative (NEGATIVE) 10/02/23 16:36 Urine Ketones Negative (NEGATIVE) 10/02/23 16:36 Urine Blood 1+ (NEGATIVE) 10/02/23 16:36 Urine Nitrite Negative (NEGATIVE) 10/02/23 16:36 Urine Bilirubin Negative (NEGATIVE) 10/02/23 16:36 Urine Urobilinogen Normal (NORMAL) 10/02/23 16:36 Ur Leukocyte Esterase 1+ (NEGATIVE) 10/02/23 16:36 Urine RBC 3-5 /HPF (0-3) A 10/02/23 16:36 Urine WBC 0-2 /HPF (0-5) 10/02/23 16:36 Ur Squamous Epith Cells Few /HPF (NEGATIVE) 10/02/23 16:36 Urine Bacteria Negative /HPF (NEGATIVE) 10/02/23 16:36 Ur Culture Indicated? No/not indicated 10/02/23 16:36 Opioid Opioid Risk Tool Age (Vadim box if 16-45): No History of Preadolescent Sexual Abuse: No Total: 0 Total Score Risk Category: Low Risk Copyright: José Luis GARZA predicting aberrant behaviors Discharge Plan Diagnosis Discharge Problem: Chest pain Discharge Plan Patient Disposition: 09 ADMITTED INPATIENT Condition: Stable Orders to Discharge Patient Discharge Orders: Discharge (Routine); Ordered 10/04/23 Ordered By: Landen Russell
--- NOTE | 2023-10-02 22:58 | EKG ---
Test Reason : Chest fullness Blood Pressure : */* mmHG Vent. 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
--- NOTE | 2023-10-02 23:09 | RAD ---
EXAM:CHEST, 1 VIEWHISTORY:evaluation at PCP for abnormal EKG. Patient states she has a history of afib but has been feeling weak the past few days.;COMPARISON:04/20/2022.TECHNIQUE:Fr ontal view of the chestFINDINGS:Heart size is upper limits of normal. Aorta is tortuous and there is atherosclerosis in the aortic arch. There is mild prominence of the interstitial markings. There is a questionable right upper lobe opacity the mediastinum. Lungs are otherwise clear. There is no pleural effusion. There is no worrisome bone marrow lesion.IMPRESSION:Question subtle right upper lobe infiltrate.THIS IS AN ELECTRONICALLY VERIFIED FINAL REPORT10/02/2023 10:55 PM - Electronically signed by Edgar Odom MD
--- NOTE | 2023-10-03 00:58 | EKG ---
Test Reason : chest pain Blood Pressure : */* mmHG Vent. 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
--- NOTE | 2023-10-03 06:17 | EKG ---
Test Reason : chest pain Blood Pressure : */* mmHG Vent. 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
[2023-10-03 07:03] LABS: BASOPHILS # (AUTO) 0.1 X10^3/uL (0.0-0.1); BASOPHILS % (AUTO) 0.9 % (0.2-1.0); EOSINOPHILS # (AUTO) 0.2 x10^3/uL (0.0-0.2); EOSINOPHILS % (AUTO) 2.3 % (0.9-2.9); HEMATOCRIT 40.2 % (36.0-47.0); HEMOGLOBIN 13.3 g/dL (12.0-16.0); LYMPHOCYTES # (AUTO) 3.4 X10^3/uL (1.3-2.9); LYMPHOCYTES % (AUTO) 43.6 % (21.0-51.0); MEAN CORPUSCULAR HGB CONC 33.1 g/dL (33.0-35.0); MEAN CORPUSCULAR VOLUME 90.6 fL (80.0-100.0); MEAN PLATELET VOLUME 9.7 fL (7.4-11.0); MONOCYTES # (AUTO) 0.7 x10^3/uL (0.3-0.8); MONOCYTES % (AUTO) 9.3 % (0.0-13.0); NEUTROPHILS # (AUTO) 3.4 x10^3/uL (2.2-4.8); NEUTROPHILS % (AUTO) 43.9 % (42.0-75.0); PLATELET COUNT 193 X10^3/uL (150.0-450.0); RED BLOOD COUNT 4.43 X10^6/uL (3.5-5.4); RED CELL DISTRIBUTION WIDTH 15.3 % (11.6-16.5); WHITE BLOOD COUNT 7.8 X10^3/uL (3.6-10.0)
[2023-10-03 07:19] LABS: ALANINE AMINOTRANSFERASE 22 Units/L (12-78); ALBUMIN 3.7 g/dL (3.4-5.0); ALKALINE PHOSPHATASE 49 Units/L (46-116); ASPARTATE AMINO TRANSFERASE 18 Units/L (15-37); BLOOD UREA NITROGEN 13 mg/dL (7-18); CALCIUM 9.7 mg/dL (8.5-10.1); CARBON DIOXIDE 30.1 mmol/L (21-32); CHLORIDE 105 mmol/L (98-107); CREATININE 0.84 mg/dL (0.55-1.02); GLUCOSE 95 mg/dL (65-99); POTASSIUM 3.8 mmol/L (3.5-5.1); SODIUM 143 mmol/L (136-145); TOTAL PROTEIN 7.6 g/dL (6.4-8.2); eGFR NON BLACK RACES > 60 (>60)
[2023-10-03] MEDS ORDERED: CONSULT PHARMACY - POTASSIUM & MAGNESIUM XX SCH (09:00)
[2023-10-03 09:11] LABS: INR 1.36 (0.8-1.3)
--- NOTE | 2023-10-03 11:00 | DR.H&P ---
H&P History & Physical for Day of: H&P Date: 10/03/23 Chief Complaint Chief Complaint: Chest pain History of Present Illness History of Present Illness: Pt is a 83 year old female with past medical history of Atrial fibrillation, Hypertension, Hyperlipidemia, Hypothyroidism, presenting with chest pain and shortness of breath that started yesterday morning. She does reports for the past month she has been having shortness of breath. Labs/imaging: Wbc 7.8, Hgb 13.3, Plt 193, Na 143, K 3.8, Creatinine 0.84, Glucose 95, INR 1.36, Mag 1.9, Troponin negative x 4. CXR negative. Pt admitted for chest pain rule out. Troponin has been negative. Due to her symptoms will consult cardiology-Dr Lagos for further evaluation. Continue telemetry. Restart home medications. Replete electrolytes per protocol. Continue to closely monitor and follow up labs/imaging. Past Medical History Past Medical History: GERD, Hypertension, Hypothyroidism and Renal Disease Past Surgical History Surgical History: Hysterectomy, Thyroidectomy and Other Family History Family Medical History: Hypertension Social History Does patient currently use any type of tobacco product: No Have you used tobacco products in the last 12 months: No Type of Tobacco Use: None Does any household member use tobacco: No Alcohol Use: None Drug Use: None Medications Home Medications: Home Medications Medication Instructions Recorded Confirmed Type meclizine 25 mg tablet 25 mg PO BID PRN 04/22/19 10/02/23 History alprazolam 0.5 mg tablet 0.5 mg PO HS 09/10/22 10/02/23 History digoxin 125 mcg (0.125 mg) tablet 125 mcg PO QDAY 09/10/22 10/02/23 History levothyroxine 75 mcg tablet 75 mcg PO QDAY 09/10/22 10/02/23 History metoprolol tartrate 25 mg tablet 25 mg PO BID 09/10/22 10/02/23 History omeprazole 40 mg capsule,delayed 40 mg PO BID 09/10/22 10/02/23 History release rosuvastatin 5 mg tablet 5 mg PO QPM 09/10/22 10/02/23 History warfarin 5 mg tablet 5 mg PO QDAY 09/10/22 10/02/23 History Allergies Allergies Allergy/AdvReac Type Severity Reaction Status Date / Time levofloxacin [From Levaquin] Allergy Verified 01/20/23 13:30 Sulfa (Sulfonamide Allergy Verified 01/20/23 13:30 Antibiotics) Labs 10/03/23 06:24 10/03/23 06:24 Labs: Laboratory WBC 7.8 X10^3/uL (3.6-10.0) 10/03/23 06:24 RBC 4.43 X10^6/uL (3.5-5.4) 10/03/23 06:24 Hgb 13.3 g/dL (12.0-16.0) 10/03/23 06:24 Hct 40.2 % (36.0-47.0) 10/03/23 06:24 MCV 90.6 fL (80.0-100.0) 10/03/23 06:24 MCH 30.0 pg (27.0-34.0) 10/03/23 06:24 MCHC 33.1 g/dL (33.0-35.0) 10/03/23 06:24 RDW 15.3 % (11.6-16.5) 10/03/23 06:24 Plt Count 193 X10^3/uL (150.0-450.0) 10/03/23 06:24 MPV 9.7 fL (7.4-11.0) 10/03/23 06:24 Neut % (Auto) 43.9 % (42.0-75.0) 10/03/23 06:24 Lymph % (Auto) 43.6 % (21.0-51.0) 10/03/23 06:24 [place] % (Auto) 9.3 % (0.0-13.0) 10/03/23 06:24 Eos % (Auto) 2.3 % (0.9-2.9) 10/03/23 06:24 Baso % (Auto) 0.9 % (0.2-1.0) 10/03/23 06:24 Neut # (Auto) 3.4 x10^3/uL (2.2-4.8) 10/03/23 06:24 Lymph # (Auto) 3.4 X10^3/uL (1.3-2.9) H 10/03/23 06:24 [place] # (Auto) 0.7 x10^3/uL (0.3-0.8) 10/03/23 06:24 Eos # (Auto) 0.2 x10^3/uL (0.0-0.2) 10/03/23 06:24 Baso # (Auto) 0.1 X10^3/uL (0.0-0.1) 10/03/23 06:24 Absolute Nucleated RBC 0.2 /100WBC 10/03/23 06:24 PT 16.5 SECONDS (11.8-14.3) 10/03/23 08:55 INR Target Range - 10/03/23 08:55 INR 1.36 (0.8-1.3) H 10/03/23 08:55 Sodium 143 mmol/L (136-145) 10/03/23 06:24 Corrected Sodium TNP 10/03/23 06:24 Potassium 3.8 mmol/L (3.5-5.1) 10/03/23 06:24 Chloride 105 mmol/L (98-107) 10/03/23 06:24 Carbon Dioxide 30.1 mmol/L (21-32) 10/03/23 06:24 BUN 13 mg/dL (7-18) 10/03/23 06:24 Creatinine 0.84 mg/dL (0.55-1.02) 10/03/23 06:24 Est GFR (MDRD) Af Amer > 60 (>60) 10/03/23 06:24 Est GFR (MDRD) Non-Af > 60 (>60) 10/03/23 06:24 Glucose 95 mg/dL (65-99) 10/03/23 06:24 Calcium 9.7 mg/dL (8.5-10.1) 10/03/23 06:24 Corrected Calcium TNP 10/03/23 06:24 Magnesium 1.9 mg/dL (2.0-2.9) L 10/03/23 06:24 Total Bilirubin 1.00 mg/dL (0.2-1.0) 10/03/23 06:24 AST 18 Units/L (15-37) 10/03/23 06:24 ALT 22 Units/L (12-78) 10/03/23 06:24 Alkaline Phosphatase 49 Units/L (46-116) 10/03/23 06:24 Troponin I High Sens 24.5 ng/L (4.0-60.0) 10/03/23 06:24 Total Protein 7.6 g/dL (6.4-8.2) 10/03/23 06:24 Albumin 3.7 g/dL (3.4-5.0) 10/03/23 06:24 Globulin 3.9 g/dL (2.5-4.5) 10/03/23 06:24 Albumin/Globulin Ratio 0.9 Ratio (1.1-2.1) L 10/03/23 06:24 Lipase 43 Units/L (16-77) 10/02/23 16:40 TSH 3rd Generation 0.482 uIU/mL (0.358-3.74) 10/02/23 16:40 Specimen Type Clean catch urine 10/02/23 16:36 Urine Color Yellow (YELLOW) 10/02/23 16:36 Urine Appearance Clear (CLEAR) 10/02/23 16:36 Urine pH 6.5 (5.0 - 8.0) 10/02/23 16:36 Ur Specific [place] 1.010 (1.000-1.030) 10/02/23 16:36 Urine Protein Negative (NEGATIVE) 10/02/23 16:36 Urine Glucose (UA) Negative (NEGATIVE) 10/02/23 16:36 Urine Ketones Negative (NEGATIVE) 10/02/23 16:36 Urine Blood 1+ (NEGATIVE) 10/02/23 16:36 Urine Nitrite Negative (NEGATIVE) 10/02/23 16:36 Urine Bilirubin Negative (NEGATIVE) 10/02/23 16:36 Urine Urobilinogen Normal (NORMAL) 10/02/23 16:36 Ur Leukocyte Esterase 1+ (NEGATIVE) 10/02/23 16:36 Urine RBC 3-5 /HPF (0-3) A 10/02/23 16:36 Urine WBC 0-2 /HPF (0-5) 10/02/23 16:36 Ur Squamous Epith Cells Few /HPF (NEGATIVE) 10/02/23 16:36 Urine Bacteria Negative /HPF (NEGATIVE) 10/02/23 16:36 Ur Culture Indicated? No/not indicated 10/02/23 16:36 Digoxin 1.02 ng/mL (0.9-2) 10/03/23 06:24 Review of Systems Constitutional: No Symptoms Reported Eyes: No Symptoms Reported ENT: No Symptoms Reported Respiratory: Shortness of Breath Cardiovascular: Chest Pain Gastrointestinal: No Symptoms Reported Genitourinary: No Symptoms Reported Musculoskeletal: No Symptoms Reported Skin: No Symptoms Reported Neurological: No Symptoms Reported Physical Exam Vital Signs: Vital Signs Temperature 98.0 F Pulse Rate [Right Brachial] 73 Respiratory Rate 18 Blood Pressure [Right Arm] 144/69 O2 Sat by Pulse Oximetry 99 Oriented: Normal Eyes: Normal Ear: Normal Nose: Normal Throat: Normal Respiratory: Clear Throughout Cardiovascular: Normal : Normal Auscultation: Bowel Sounds: Normal Palpation: Normal Tenderness: Normal Skin: Normal Musculoskeletal: Normal Psychiatric: Normal Mood Description: Calm and Appropriate Affect: Normal Speech Pattern: Clear and Appropriate Assessment/Plan (1) Chest pain, rule out acute myocardial infarction: Status: Acute Plan: Consult cardiology Troponin negative. Continue on telemetry. (2) Essential hypertension: Status: Chronic (3) Chronic kidney disease (CKD): Qualifiers: Chronic kidney disease stage: unspecified stage Qualified Code(s): N18.9 - Chronic kidney disease, unspecified Status: Chronic (4) Hyperlipidemia: Qualifiers: Hyperlipidemia type: mixed hyperlipidemia Qualified Code(s): E78.2 - Mixed hyperlipidemia Status: Chronic (5) Hypothyroidism: Qualifiers: Hypothyroidism type: acquired Qualified Code(s): E03.9 - Hypothyroidism, unspecified Status: Chronic (6) A-fib: Qualifiers: Atrial fibrillation type: unspecified Qualified Code(s): I48.91 - Unspecified atrial fibrillation Status: Chronic Review H&P Reviewed: Yes Patient was examined?: Yes
[2023-10-03] MEDS: MAG-OX TAB PO NR (12:41)
[2023-10-03] MEDS: COUMADIN TAB 5 MG (JANTOVEN) PO SCH (12:42)
--- NOTE | 2023-10-03 13:10 | EKG ---
Test Reason : chest pain Blood Pressure : */* mmHG Vent. Rate : 79 BPM Atrial Rate : 79 BPM P-R Int : 212 ms QRS Dur : 70 ms QT Int : 360 ms P-R-T Axes : 74 -25 92 degrees QTc Int : 412 ms Sinus rhythm with 1st degree AV block Possible Left atrial enlargement Inferior infarct (cited on or before 20-APR-2022) Anteroseptal infarct (cited on or before 20-APR-2022) Abnormal ECG When compared with ECG of 03-OCT-2023 06:02, Sinus rhythm has replaced Atrial fibrillation Questionable change in initial forces of Septal leads Questionable change in initial forces of Inferior leads Confirmed by Moise Lagos MD ([id number]) on 10/03/2023 1:56:44 PM Referred By: Confirmed By: Moise Lagos MD
--- NOTE | 2023-10-03 13:48 | DR.CONSULT ---
CONSULT Consultation for Day of: Date: 10/03/23 Chief Complaint Chief Complaint: cp/sob/irreg heart beat Allergies Allergies Allergy/AdvReac Type Severity Reaction Status Date / Time levofloxacin [From Levaquin] Allergy Verified 01/20/23 13:30 Sulfa (Sulfonamide Allergy Verified 01/20/23 13:30 Antibiotics) History of Present Illness History of Present Illness: h/o paroxysmal afib- holter 07/05: no af, ekg 02/04: no afib- last week heart beat irreg- on coumadin but inr low- bp up- had cp lasting hours- ekgx4: afib, no ischemic st changes- today converted back to nsr, 4 trops negative for mi- echo: good lv as last year- had stress nuc 3 years ago: ok in [place]- didnot like the test- will add amio to keep in nsr and work on BP Past Medical History Past Medical History: GERD, Hypertension, Hypothyroidism and Renal Disease Past Surgical History Surgical History: Hysterectomy, Thyroidectomy and Other Family History Family Medical History: Hypertension Social History Does patient currently use any type of tobacco product: No Have you used tobacco products in the last 12 months: No Type of Tobacco Use: None Does any household member use tobacco: No Alcohol Use: None Drug Use: None Medications Home Medications: levofloxacin [From Levaquin] Allergy (Verified 01/20/23 13:30) Sulfa (Sulfonamide Antibiotics) Allergy (Verified 01/20/23 13:30) Physical Exam Vital Signs: Vital Signs Temperature 97.9 F Temperature 98.3 F Pulse Rate [Right Brachial] 76 Pulse Rate [Right Brachial] 84 Respiratory Rate 20 Respiratory Rate 20 Blood Pressure [Right Arm] 185/79 Blood Pressure [Right Arm] 165/73 O2 Sat by Pulse Oximetry 96 O2 Sat by Pulse Oximetry 97 bp too high tele: nsr clear lungs rrr soft asmita minimla edema labs to note;hct 40 inr 1.36 tsh 0.48 ekg: afib? old inf/ant mi echo: NSR LVH good lv no sign valve issues Plan (1) Chest pain, rule out acute myocardial infarction: Status: Acute Narrative Support Text: no mi x 4 trops (2) Essential hypertension: Status: Chronic Plan: push meds (3) Chronic kidney disease (CKD): Status: Chronic Qualifiers: Chronic kidney disease stage: unspecified stage Qualified Code(s): N18.9 - Chronic kidney disease, unspecified (4) Hyperlipidemia: Status: Chronic Qualifiers: Hyperlipidemia type: mixed hyperlipidemia Qualified Code(s): E78.2 - Mixed hyperlipidemia (5) Hypothyroidism: Status: Chronic Qualifiers: Hypothyroidism type: acquired Qualified Code(s): E03.9 - Hypothyroidism, unspecified (6) A-fib: Status: Chronic Qualifiers: Atrial fibrillation type: unspecified Qualified Code(s): I48.91 - Unspecified atrial fibrillation Plan: paroxysmal- symptoms prob related to this- now converted- will add amio. stop digoxin, push bp meds- f/u 2 weeks w me
[2023-10-03] MEDS: ZESTRIL TAB 10 MG PO SCH (15:36)
[2023-10-03] MEDS: CORDARONE TAB 200 MG PO SCH (15:36)
[2023-10-03] MEDS: CRESTOR TAB 10 MG PO SCH (21:24)
[2023-10-03] MEDS: PriLOSEC PO SCH (21:25)
[2023-10-03] MEDS: ALPRAZOLAM ODT PO SCH (21:25)
[2023-10-03] MEDS: LOPRESSOR TAB 25 MG PO SCH (21:26)
[2023-10-04 00:27] VITALS: RESP 18
[2023-10-04 04:15] VITALS: O2SAT 96
[2023-10-04 06:00] LABS: ALANINE AMINOTRANSFERASE 17 Units/L (12-78); ALBUMIN 3.5 g/dL (3.4-5.0); ALKALINE PHOSPHATASE 43 Units/L (46-116); ASPARTATE AMINO TRANSFERASE 20 Units/L (15-37); BLOOD UREA NITROGEN 13 mg/dL (7-18); CALCIUM 8.8 mg/dL (8.5-10.1); CARBON DIOXIDE 29.6 mmol/L (21-32); CHLORIDE 104 mmol/L (98-107); CREATININE 0.93 mg/dL (0.55-1.02); GLUCOSE 99 mg/dL (65-99); POTASSIUM 3.9 mmol/L (3.5-5.1); SODIUM 141 mmol/L (136-145); eGFR NON BLACK RACES > 60 (>60)
[2023-10-04 06:08] LABS: BASOPHILS # (AUTO) 0.1 X10^3/uL (0.0-0.1); BASOPHILS % (AUTO) 1.1 % (0.2-1.0); EOSINOPHILS # (AUTO) 0.1 x10^3/uL (0.0-0.2); EOSINOPHILS % (AUTO) 1.9 % (0.9-2.9); HEMATOCRIT 36.5 % (36.0-47.0); LYMPHOCYTES # (AUTO) 3.8 X10^3/uL (1.3-2.9); LYMPHOCYTES % (AUTO) 49.1 % (21.0-51.0); MEAN CORPUSCULAR HEMOGLOBIN 29.8 pg (27.0-34.0); MEAN CORPUSCULAR HGB CONC 32.7 g/dL (33.0-35.0); MEAN CORPUSCULAR VOLUME 91.1 fL (80.0-100.0); MONOCYTES # (AUTO) 0.7 x10^3/uL (0.3-0.8); MONOCYTES % (AUTO) 8.6 % (0.0-13.0); NEUTROPHILS % (AUTO) 39.3 % (42.0-75.0); PLATELET COUNT 179 X10^3/uL (150.0-450.0); RED BLOOD COUNT 4.01 X10^6/uL (3.5-5.4); WHITE BLOOD COUNT 7.7 X10^3/uL (3.6-10.0)
[2023-10-04 08:33] VITALS: BP 140/77; PULSE 72; TEMP 98
--- NOTE | 2023-10-04 08:36 | NOTE.SOAP ---
Soap Note Note for Day of Date of Exam: 10/04/23 Subjective Data Subjective Data: no c/o- wants to go home Objective Data Objective Data: tele: nsr bp 140s ( lisinopril just added yesterady) Assessment Assessment: no IN/ afib on admission:back in nsr, lvh with elevated bp Plan Plan: ok to go home. amio load ( watch inr as potentiates coumadin) - bonita aded for bp- f/u with me in 2 weeks
[2023-10-04] MEDS ORDERED: LANOXIN or DIGITEK PO SCH (09:00)
[2023-10-04] MEDS: SYNTHROID 75 mcg TAB PO SCH (09:21)
== END 2023-10-04 10:07 | disposition home or self-care (01) ==
LOC: MED/SURG 16:12 → ER 16:12 → MED/SURG 22:37
PROVIDERS: ADMIT Internal Medicine; ATTEND Internal Medicine
DX: R79.1 Abnormal coagulation profile; R53.1 Weakness; N18.9 Chronic kidney disease, unspecified; R07.89 Other chest pain; I48.91 Unspecified atrial fibrillation; R06.02 Shortness of breath; I10 Essential (primary) hypertension; K21.9 Gastro-esophageal reflux disease without esophagitis; E03.8 Other specified hypothyroidism; R26.89 Other abnormalities of gait and mobility; E83.42 Hypomagnesemia; E78.2 Mixed hyperlipidemia; R94.31 Abnormal electrocardiogram [ECG] [EKG]; R42 Dizziness and giddiness; R55 Syncope and collapse; Z79.01 Long term (current) use of anticoagulants